=== PATIENT | male | born 1960 | race Caucasian/White ===

== ENCOUNTER → 2016-11-12 | Outpatient (REF) | payer OTHER ==
[2016-11-14 00:17] LABS: Lyme Disease IgG/IgM Antibodie <0.91 ISR (0.00-0.90); Lyme Disease IgM Ab Quantitati <0.80 index (0.00-0.79)
== END ==
LOC: M LABDRWAD 12:19
PROVIDERS: ATTEND Physician Assistant Medical
DX: S20.369A Insect bite (nonvenomous) of unspecified front wall of thorax, initial encounter (principal); W57.XXXA Bitten or stung by nonvenomous insect and other nonvenomous arthropods, initial encounter; Y92.9 Unspecified place or not applicable

== ENCOUNTER → 2016-11-24 | Outpatient (REF) | payer OTHER | LOC: M LABDRWAD 12:21 | PROVIDERS: ATTEND Urology | DX: R59.0 Localized enlarged lymph nodes (principal); E29.1 Testicular hypofunction; Z87.442 Personal history of urinary calculi ==

== ENCOUNTER → 2017-12-22 | Outpatient (REF) | payer OTHER ==
[2017-12-22 13:36] LABS: PROSTATIC SPECIFIC AG MONITOR 0.97 NG/ML (< 4.0)
[2017-12-22 15:08] LABS: TESTOSTERONE 230 NG/DL (241-827)
== END ==
LOC: M LABDRWAD 12:44
DX: R59.0 Localized enlarged lymph nodes (principal); N40.1 Benign prostatic hyperplasia with lower urinary tract symptoms; E29.1 Testicular hypofunction; Z87.442 Personal history of urinary calculi

== ENCOUNTER → 2020-01-21 | Outpatient (REF) | payer OTHER ==
[2020-01-21 13:06] LABS: HEMATOCRIT 48.6 % (42.0-52.0); HEMOGLOBIN 16.7 g/dl (13.5-17.5); MEAN CORPUSCULAR HEMOGLOBIN 32.1 pg (27.0-33.0); MEAN CORPUSCULAR HGB CONC 34.4 g/dl (32.0-36.5); MEAN CORPUSCULAR VOLUME 93.5 fl (80.0-96.0); PLATELET COUNT, AUTOMATED 232 10^3/uL (150-450); WHITE BLOOD COUNT 11.7 10^3/uL (4.0-10.0)
[2020-01-21 13:19] LABS: THYROID STIMULATING HORMONE 0.957 uIU/ML (0.358-3.740)
[2020-01-21 13:21] LABS: THYROID PEROXIDASE ANTIBODY 36.7 U/ML (<60.0)
[2020-01-21 14:00] LABS: BASOPHILS 1 % (0-1); LYMPHOCYTES 28 % (16-44); METAMYELOCYTES 1 % (0-0); MONOCYTES 6 % (0-5); NEUTROPHILS 64 % (28-66)
[2020-01-21 15:08] LABS: PLATELET ESTIMATE NORMAL (NORMAL)
== END ==
LOC: M LABDRWAD 12:26
PROVIDERS: ATTEND Dermatology
DX: R21 Rash and other nonspecific skin eruption (principal)

== ENCOUNTER → 2020-02-11 | Outpatient (CLI) | payer OTHER | LOC: M LABSMTC 10:15 | PROVIDERS: ATTEND Family Medicine | DX: Z11.59 Encounter for screening for other viral diseases (principal); Z20.828 Contact with and (suspected) exposure to other viral communicable diseases ==

== ENCOUNTER 2020-02-14 14:53 | Inpatient (IN) | payer OTHER ==
[~2020-02-14] VITALS: Ht 170.2 cm; Wt 112.5 kg
[2020-02-14] MEDS ORDERED: ALLO100T PO (15:06)
[2020-02-14] MEDS ORDERED: PANT40TA3 PO (15:06)
[2020-02-14] MEDS ORDERED: OLME1TAB47 PO (15:06)
[2020-02-14] MEDS ORDERED: ALL10TAB29 PO (15:06)
[2020-02-14] MEDS ORDERED: PARO20TA3 PO (15:06)
[2020-02-14] MEDS ORDERED: CELE1CAP9 PO (15:06)
--- NOTE | 2020-02-14 15:56 | REP ---
CHEST, SINGLE VIEW: Single view of the chest is performed and compared to a prior study of 12/11/2010. There is mild linear fibroatelectatic change in each lung base. There is no acute infiltrate. The heart is upper limits of normal in size. Mediastinal silhouette is unchanged. IMPRESSION: No acute infiltrate. Electronically Signed by Chris Robles MD 02/14/2020 04:29 P
[2020-02-14 15:59] LABS: HEMATOCRIT 27.6 % (42.0-52.0); HEMOGLOBIN 9.2 g/dl (13.5-17.5); MEAN CORPUSCULAR HEMOGLOBIN 35.7 pg (27.0-33.0); MEAN CORPUSCULAR HGB CONC 33.3 g/dl (32.0-36.5); PLATELET COUNT, AUTOMATED 135 10^3/uL (150-450); RED BLOOD COUNT 2.58 10^6/uL (4.30-6.10); WHITE BLOOD COUNT 6.1 10^3/uL (4.0-10.0)
[2020-02-14] MEDS ORDERED: NS 500 ML IV ONE (16:15)
[2020-02-14 16:35] LABS: ATYPICAL LYMPH 5 % (0-5); BASOPHILS 1 % (0-1); LYMPHOCYTES 23 % (16-44); MONOCYTES 5 % (0-5); NEUTROPHILS 66 % (28-66); PLATELET ESTIMATE DECREASED (NORMAL)
[2020-02-14 16:36] LABS: ANISOCYTOSIS 1+; POIKILOCYTOSIS 1+
[2020-02-14 16:45] LABS: ALT/SGPT 147 U/L (12-78); BILIRUBIN,DIRECT 1.9 MG/DL (0.0-0.2); BILIRUBIN,TOTAL 5.8 MG/DL (0.2-1.0); CK-MB VALUE MASS < 1.0 NG/ML (<3.6); CPK CREATINE PHOSPHOKINASE 89 U/L (39-308); MB/CK RELATIVE INDEX 1.12 (< OR =4); TOTAL PROTEIN 5.7 GM/DL (6.4-8.2); TROPONIN I < 0.02 NG/ML (< 0.10)
[2020-02-14] MEDS ORDERED: NS 1,000 ML IV SCH (16:45)
--- NOTE | 2020-02-14 17:58 | REPVR ---
PROCEDURE INFORMATION: Exam: CT Abdomen And Pelvis Without Contrast Exam date and time: 02/14/2020 5:05 PM Age: 59 years old Clinical indication: Other: Hyperbilirubinemia; Additional info: Evaristo, hyperbilirubinemia TECHNIQUE: Imaging protocol: Computed tomography of the abdomen and pelvis without contrast. Radiation optimization: All CT scans at this facility use at least one of these dose optimization techniques: automated exposure control; mA and/or kV adjustment per patient size (includes targeted exams where dose is matched to clinical indication); or iterative reconstruction. COMPARISON: No relevant prior studies available. FINDINGS: Lungs: Right basilar calcified granuloma. There are mild bibasilar dependent changes. Liver: Mild hepatic steatosis. Gallbladder and bile ducts: Previous cholecystectomy. Pancreas: Normal. No ductal dilation. Spleen: There are several calcified granulomas involving the spleen. Adrenals: Normal. No mass. Kidneys and ureters: There is left greater than right nephrolithiasis measuring up to 4 mm on the left. No hydronephrosis. Stomach and bowel: Mild diverticulosis without diverticulitis. Appendix: No evidence of appendicitis. Intraperitoneal space: Unremarkable. No free air. No significant fluid collection. Vasculature: Mild vascular calcification. Lymph nodes: Right hilar calcified lymph nodes. Bladder: Urinary bladder is under distended. Reproductive: Unremarkable as visualized. Bones/joints: There are degenerative changes involving the spine. Soft tissues: Small right inguinal hernia contains fat. IMPRESSION: 1. No acute abnormality. 2. Left greater than right nephrolithiasis without obstructive uropathy. 3. Additional findings as above. Electronically signed by: Floyd Jimenez On 02/14/2020 17:58:11 PM
--- NOTE | 2020-02-14 18:07 | REPVR ---
PROCEDURE INFORMATION: Exam: CT Head Without Contrast Exam date and time: 02/14/2020 5:51 PM Age: 59 years old Clinical indication: Syncope and collapse; Additional info: Near syncope TECHNIQUE: Imaging protocol: Computed tomography of the head without contrast. Radiation optimization: All CT scans at this facility use at least one of these dose optimization techniques: automated exposure control; mA and/or kV adjustment per patient size (includes targeted exams where dose is matched to clinical indication); or iterative reconstruction. COMPARISON: No relevant prior studies available. FINDINGS: Brain: Normal. No hemorrhage. Unremarkable white matter. No mass effect. Ventricles: Normal. No ventriculomegaly. Bones/joints: Unremarkable. No acute fracture. Sinuses: Visualized sinuses are unremarkable. No fluid levels. Mastoid air cells: Visualized mastoid air cells are well aerated. Soft tissues: Unremarkable. IMPRESSION: No acute intracranial abnormality. Electronically signed by: Floyd Jimenez On 02/14/2020 18:07:04 PM
[2020-02-14] MEDS: NS 1,000 ML IV SCH (18:58)
--- NOTE | 2020-02-14 19:38 | HPEPDOC ---
[facility] Medical History & Physical Date of Admission Feb 14, 2020 Date of Service: Feb 14, 2020 Primary Care Physician: A Attending Physician: Margarette Soni MD History and Physical CHIEF COMPLAINT: Loss of consciousness HISTORY OF PRESENT ILLNESS: Patient is a 59-year-old male with past nuchal history of obesity, gout, anxiety, GERD, osteoarthritis of the lower back, history of kidney stones and back rash who presented to [facility] from his primary care office today after having episode of syncope. The patient states that over the past 3 weeks he has been taking to prescribe medication dapsone for a "hivelike" rash that has a present on his back for the past several months. He had tried prednisone prior to that which he felt helped with the rash. He stopped the dapsone one week ago because he had been feeling increasingly lethargic, dizzy, lightheaded, decreased appetite, increased shortness of breath with a nonproductive cough, nausea with some vomiting 1. He also noticed that his urine was very dark in color and his skin was turning more yellow. He did not notice an improvement in the rash. He denies chest pain. He went to see his primary care doctor today and while he was there he experienced some lightheadedness and dizziness, loss consciousness and fell to the ground all knee for several seconds. When he came to again he was confused. EMS was called and blood pressure was checked. Systolic blood pressure was 84 mmHg. the patient denies any new medications outside of dapsone, changes in his diet. Of note, for his cough and new shortness of breath he was tested for Covid 19 by the outpatient clinic this past week and results came back negative. In the emergency room the patient's blood pressure 90/55, all other vital signs were within normal limits. Chest x-ray showed no acute disease. He had multiple abnormal labs including sodium 132, chloride 97, H&H 9.2 27.6, creatinine 3.2 (no known kidney disease), T bili 5.8, D bili 1.9, AST 135, ALT 147, alkaline phosphatase 126. The patient appeared jaundiced with yellowed skin and yellow sclera. On examination the patient had oral thrush on his tongue, noting that the patient had just completed several weeks of prednisone prior to starting the dapsone. He had a very light pink flattened and scaled rash all throughout his back, very faint. The patient received 500 mL bolus and was started on 120 mL of fluid of normal saline blood pressure improved over time. Last blood pressure recorded 132/90 in the ER. The patient denies shortness of breath currently. Nephrology and GI were contacted, case was discussed with both. They will both the consults on this case. Patient was admitted for acute drug induced hepatotoxicity, acute kidney failure likely multifactorial 2/2 to dapsone and dehydration. REVIEW OF SYSTEMS: CONSTITUTIONAL: Denies unexplained weight gain or weight loss, fever, night sweats EYES: Denies eye drainage, eye pain, visual changes, dry/irritated eye EARS, NOSE, MOUTH, THROAT: Denies difficulty hearing, ringing in ears, mouth sores, loose teeth, sore throat, facial numbness or pain NECK: Denies swollen glands CARDIOVASCULAR: Denies irregular heartbeat, racing heart, chest pains, swelling of feet or legs, pain in legs with walking RESPIRATORY: Denies night sweats, wheezing, sputum production, oxygen at home, coughing up blood, cough lasting > 1 month GASTROINTESTINAL: Denies abdominal pain, constipation, bloody stool, heartburn GENITOURINARY: Denies painful urination, bloody urine, frequent urination, urgency, leaking urine, impotence MUSCULOSKELETAL: Denies joint pain, muscle pain, leg swelling INTEGUMENTARY: Denies itching, change in existing skin lesion, hair loss or increase, breast changes. NEUROLOGICAL: Denies headaches, difficulty walking, numbness or tingling PSYCHIATRIC: Denies depression, anxiety, recurrent bad thoughts, mood swings, hallucinations PAST MEDICAL HISTORY: 1. Obesity 2. Back rash 3. Gout 4. Anxiety 5. GERD 6. Chronic low back pain 7. Osteoarthritis of the back 8. History of kidney stones PAST SURGICAL HISTORY: 1. Cholecystectomy 2. Right knee surgery 2 FAMILY HISTORY: Father: CAD, diabetes. at 59 years old Mother: Hypertension, alive. Siblings: Brotherdiabetes mellitus. Alive SOCIAL HISTORY: The patient denies smoking or drug use history. He drinks alcohol socially. 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 His primary care provider is Alonzo Mcclelland. He follows with a sub prior in [place], Dr. Rondon. He has no living will or healthcare proxy. He is a full code. ALLERGIES: Please see below. HOME MEDICATIONS: Please see below. PHYSICAL EXAMINATION: CONSTITUTIONAL: No acute distress, resting comfortably, AAO x 3 EYES: PERRLA, EOM intact, yellow sclera HENT, MOUTH: Normocephalic, atraumatic, moist mucous membranes, thrush on tongue NECK: SUPPLE, no JVD, no lymphadenopathy, no carotid bruit CV: Regular rate and rhythm, S1S2 normal, no murmurs/rubs/gallops RESPIRATORY: Clear to auscultation bilaterally, no rales/rhonchi/wheezes GI: obese, BS positive in 4 quadrants, soft, nontender, nondistended, no rebound or guarding, no organomegaly : Deferred MUSCULOSKELETAL: Normal ROM. No cyanosis, clubbing, swelling, joint deformity, extremity edema INTEGUMENTARY: Light pink and scaled rash all over the upper and lower back. Yellow skin throughout body, Intact, no lesions, no erythema NEUROLOGIC: Cranial Nerves II-XII are intact, no focal deficits PSYCHIATRIC: Mood and affect are normal LABORATORY DATA: Please see below IMAGING: CXR: No acute infiltrate. CT abd/pelvis: Mild hepatic steatosis No acute abnormality. Left greater than right nephrolithiasis without obstructive uropathy. CT head: No acute intracranial abnormality ASSESSMENT: 59 y/o male admitted for acute drug-induced hepatotoxicity, hepatitis, hyperbilirubinemia, acute renal failure, dehydration. PLAN: 1. Acute hepatotoxicity, drug induced 2/2 to dapsone. + hyperbilirubinemia, hepatitis, jaundice, increased T bili, steatosis on CT scan, no known hepatitis history. Continue with IV fluids, daily CMP. Follow-up hepatitis panel, PT/INR, PTT. Avoid hepatotoxic medications. GI consulted. 2. Acute kidney injury likely multifactorial from medications and dehydration. Creatinine 3.2, dark urine. Continue with IV fluids, daily CMP. Avoid nephrotoxic medications follow-up nephrology consult. 3. Syncope likely secondary to hypotension, dehydration. Improved blood pressure after 500 mL bolus and normal saline at 120 mL an hour. Continue with IV fluids, monitor blood pressure every 4 hours, telemetry. Holding off on echocardiogram and carotid doppler. 4. Dehydration likely multifactorial to problem #1 and 2. Continue with plan as above, monitor electrolytes closely. Daily CMP. 5. Skin rash on upper and lower back. Previously was on prednisone, most rec ently dapsone until one week ago. Unknown as to what sub prior was treating exactly. ? autoimmune etiology. 6. Oral thrush. Patient recently had [id number] prednisone treatments for the rash on his back. He states he has no pain in his mouth and this is all The past several weeks. Nystatin swish and swallow 3 times a day. 7. Shortness of breath and cough. Chest x-ray negative, currently on room air saturating well. Had a recent Covid 19 screen which was negative over the past week. Continue to monitor close. 8. Gout. Holding allopurinol. 9. Osteoarthritis. Stable. 10. Anxiety. Stable. 11. DVT px. Holding off on heparin while PT/INR/PTT pending. DISPOSITION: Admitted under inpatient status. Plan is discharge home when medically improved. GI and nephrology consulted. Vital Signs Vital Signs Date Time Temp Pulse Resp B/P (MAP) Pulse Ox O2 Delivery O2 Flow Rate FiO2 02/14/20 18:38 69 17 94 02/14/20 18:31 111/53 (72) 02/14/20 15:05 98.1 Room Air 2.0 Laboratory Data Labs 24H Laboratory Tests 2 02/14/20 15:42: Neutrophils (%) (Auto) , Nucleated Red Blood Cells % (auto) 0.0, Neutrophils 66, Lymphocytes (Manual) 23, Monocytes (Manual) 5, Basophils (Manual) 1, Atypical Lymphocytes 5, Poikilocytosis 1+, Anisocytosis 1+, Macrocytosis 2+, Platelet Estimate DECREASED, Lactic Acid Level 1.8, Total Bilirubin 5.8H, Direct Bilirubin 1.9H, Aspartate Amino Transf (AST/SGOT) 135H, Alanine Aminotransferase (ALT/SGPT) 147H, Alkaline Phosphatase 126H, Total Creatine Kinase 89, Creatine Kinase MB < 1.0, Creatine Kinase MB Relative Index 1.12, Troponin I < 0.02, Total Protein 5.7L, Albumin 3.0L, Albumin/Globulin Ratio 1.11, Thyroid Stimulating Hormone (TSH) 2.200 02/14/20 15:44: Bedside Glucose (Misc Panel) 103 02/14/20 15:46: POC Glucose (Misc Panel) 103, POC Sodium (Misc Panel) 132L, POC Potassium (Misc Panel) 3.8, POC Chloride (Misc Panel) 97L, POC Total CO2 (Misc Panel) 23.0, POC Blood Urea Nitrogen (Misc Panel 30H, POC Ionized Calcium (Misc Panel) 4.6, POC Creatinine (Misc Panel) 3.2H, POC Hematocrit (Misc Panel) 28.0L CBC/BMP Laboratory Tests 02/14/20 15:42 Microbiology Microbiology 02/14/20 Blood Culture, Received Pending 02/14/20 Blood Culture, Received Pending Home Medications Scheduled Allopurinol (Allopurinol) 100 Mg Tablet, 100 MG PO DAILY Celecoxib (Celecoxib) 200 Mg Capsule, 200 MG PO DAILY Cetirizine HCl (Cetirizine HCl) 10 Mg Tablet, 10 MG PO DAILYPRN Olmesartan/Hydrochlorothiazide (Olmesartan-Hctz 40-25 mg Tab) 1 Each Tablet, 1 TAB PO DAILY Pantoprazole Sodium (Pantoprazole Sodium) 40 Mg Tablet.dr, 40 MG PO DAILY Paroxetine HCl (Paroxetine HCl) 20 Mg Tablet, 20 MG PO DAILY Allergies Coded Allergies: No Known Allergies (Verified Allergy, Unknown, 02/14/20) A-FIB/CHADSVASC A-FIB History Current/History of A-Fib/PAF?: No Current PO Anticoag Therapy: No Age/Risk Factor Scoring CHADSVASC: CHADSVASC Response (Comments) Value Age Risk Factor Age < 65 years old 0 Gender Risk Factor Male 0 Hx of CHF No 0 Hx of HTN No 0 Hx of Stroke/TIA/or VTE No 0 Hx of Diabetes No 0 Hx of Vascular Disease No 0 Total 0 Treatment Treatment ordered: NONE Reason Anticoagulant not given: Other Other reason anticoagulant not: pending labs Margarette Soni MD Feb 14, 2020 19:38
[2020-02-14 19:49] LABS: INR 1.29; PROTHROMBIN TIME 15.8 SECONDS (11.8-14.0)
[2020-02-14 19:50] LABS: PARTIAL THROMBOPLASTIN TIME 38.2 SECONDS (25.0-38.4)
[2020-02-14 21:26] LABS: LDH LACTATE DEHYDROGENASE 1062 U/L (87-241)
[2020-02-14 23:05] VITALS: BP 126/59
[2020-02-15] MEDS: NYSTATIN 500,000 U/5 ML SUSP UDC SS SCH ×4 (00:23→21:28)
[2020-02-15] MEDS: NS 1,000 ML IV SCH ×2 (01:15→09:27)
[2020-02-15 05:47] LABS: HEMATOCRIT 24.9 % (42.0-52.0); HEMOGLOBIN 8.2 g/dl (13.5-17.5); MEAN CORPUSCULAR HEMOGLOBIN 35.7 pg (27.0-33.0); MEAN CORPUSCULAR HGB CONC 32.9 g/dl (32.0-36.5); MEAN CORPUSCULAR VOLUME 108.3 fl (80.0-96.0); PLATELET COUNT, AUTOMATED 137 10^3/uL (150-450)
[2020-02-15 06:00] VITALS: BP 118/70
[2020-02-15 06:18] LABS: ATYPICAL LYMPH 2 % (0-5); BASOPHILS 1 % (0-1); LYMPHOCYTES 31 % (16-44); MONOCYTES 10 % (0-5); NEUTROPHILS 56 % (28-66); PLATELET ESTIMATE NORMAL (NORMAL)
[2020-02-15 06:24] LABS: ALBUMIN 2.7 GM/DL (3.2-5.2); BILIRUBIN,TOTAL 4.2 MG/DL (0.2-1.0); CALCIUM LEVEL 8.1 MG/DL (8.8-10.2); CREATININE FOR GFR 1.56 MG/DL (0.70-1.30); GLOMERULAR FILTRATION RATE 48.6 (>49); POTASSIUM SERUM 3.9 MEQ/L (3.5-5.1); TOTAL PROTEIN 5.1 GM/DL (6.4-8.2)
[2020-02-15] MEDS: PANTOPRAZOLE 40MG TAB (PROTONIX) PO SCH (09:29)
[2020-02-15 11:28] LABS: HEPATITIS A ANTIBODY IGM NEGATIVE (NEGATIVE); HEPATITIS B CORE ANTIBODY IGM NEGATIVE (NEGATIVE); HEPATITIS B SURFACE ANTIGEN NEGATIVE (NEGATIVE); HEPATITIS C VIRUS ABY INDEX 0.1 INDEX (<0.8)
--- NOTE | 2020-02-15 13:58 | ECGEPIP ---
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
[2020-02-15 14:00] VITALS: BP 118/65
[2020-02-15 15:11] LABS: APPEARANCE, URINE HAZY (CLEAR); BACTERIA, URINE AUTO NEGATIVE (NEGATIVE); BILIRUBIN, URINE AUTO NEGATIVE (NEGATIVE); BLOOD, URINE BLOOD 1+ (NEGATIVE); COLOR, URINE AMBER (YELLOW); GLUCOSE, URINE (UA) AUTO 1+ mg/dL (NEGATIVE); KETONE, URINE AUTO NEGATIVE (NEGATIVE); LEUKOCYTE ESTERASE, URINE AUTO NEGATIVE (NEGATIVE); MUCUS, URINE SMALL (NEGATIVE); NITRITE, URINE AUTO NEGATIVE (NEGATIVE); PROTEIN, URINE AUTO NEGATIVE (NEGATIVE); RBC, URINE AUTO 2 /HPF (0-3); SPECIFIC GRAVITY URINE AUTO 1.014 (1.002-1.035); SQUAMOUS EPITHELIAL CELL UR AU 0 /HPF (0-6); WBC, URINE AUTO 3 /HPF (0-3)
--- NOTE | 2020-02-15 17:31 | IPNPDOC ---
Date Seen The patient was seen on 02/15/20. Progress Note SUBJECTIVE: Improving labs and jaundice. LDH high, with haptoglobin, ANCA, peripheral smear pending. GI and nephrology following. Denies chest pain, n/v/d, bleeding, shortness of breath. OBJECTIVE: VITAL SIGNS: Please see below PHYSICAL EXAMINATION: CONSTITUTIONAL: No acute distress, resting comfortably, AAO x 3 EYES: PERRLA, EOM intact, yellow sclera HENT, MOUTH: Normocephalic, atraumatic, moist mucous membranes, thrush on tongue NECK: SUPPLE, no JVD, no lymphadenopathy, no carotid bruit CV: Regular rate and rhythm, S1S2 normal, no murmurs/rubs/gallops RESPIRATORY: Clear to auscultation bilaterally, no rales/rhonchi/wheezes GI: obese, BS positive in 4 quadrants, soft, nontender, nondistended, no rebound or guarding, no organomegaly : Deferred MUSCULOSKELETAL: Normal ROM. No cyanosis, clubbing, swelling, joint deformity, extremity edema INTEGUMENTARY: Light pink and scaled rash all over the upper and lower back- slightly improved today. Yellow skin throughout body. Intact, no lesions, no erythema NEUROLOGIC: Cranial Nerves II-XII are intact, no focal deficits PSYCHIATRIC: Mood and affect are normal LABORATORY DATA: Please see below IMAGING: No new imaging. CURRENT MEDICATIONS: Please see below. ASSESSMENT: 59 y/o male admitted for acute drug-induced hepatotoxicity, hepatitis, hyperbilirubinemia, acute renal failure, dehydration r/o hemolytic syndrome. PLAN: 1. Acute hepatotoxicity, drug induced 2/2 to dapsone. Hyperbilirubinemia, tranaminitis, jaundice, T bili improving. Steatosis on CT scan, no known hepatitis history. Continue with IV fluids, daily CMP. Follow-up hepatitis panel, daily labs. Avoid hepatotoxic medications. GI consulted. 2. Acute kidney injury likely multifactorial from medications and dehydration. Creatinine 1.56, improved from 3.2 on admission. Continue with IV fluids, daily CMP. Avoid nephrotoxic medications. Nephrology consulted. 3. Anemia. r/o hemolytic syndrome. Slightly worsened H/H overnight with fluids, no bleeding, T bili decreased. LDH high. F/u folate, vitamin B12, iron, TIBC, ferritin, peripheral smear, haptoglobin, G6PD deficiency (with recent dapsone). 4. Syncope likely secondary to hypotension, dehydration. No events overnight. Improved blood pressure . 5. Dehydration likely multifactorial to problem #1 and 2. Improving slowly, Na 135. Continue with plan as above, monitor electrolytes closely. Daily CMP. 6. Skin rash on upper and lower back. Previously was on prednisone, most recent ly dapsone until one week ago. Unknown as to what rod hanger was treating exactly. ? autoimmune etiology. ANCA pending. 7. Oral thrush. C/w Nystatin swish and swallow TID 8. Shortness of breath and cough. Chest x-ray negative, currently on room air saturating well. Had a recent Covid 19 screen which was negative over the past week. Continue to monitor 9. Gout. Holding allopurinol. 10. Osteoarthritis. Stable. 11. Anxiety. Stable. 12. DVT px. Holding off on heparin with ? hemolysis. Encourage ambulation, SCD. DISPOSITION: Admitted under inpatient status. Plan is discharge home when m edically improved. GI and nephrology consulted. VS, I&O, 24H, [facility] Vital Signs/I&O Vital Signs Date Time Temp Pulse Resp B/P (MAP) Pulse Ox O2 Delivery O2 Flow Rate FiO2 02/15/20 14:00 98.5 91 18 118/65 (82) 90 Room Air 02/15/20 06:00 1.0 I&O- Last 24 Hours up to 6 AM 02/15/20 06:00 Intake Total 2125 ml Output Total 600 ml Balance 1525 ml Laboratory Data 24H LABS Laboratory Tests 2 02/14/20 19:32: Prothrombin Time 15.8H, Prothromb Time International Ratio 1.29, Activated Partial Thromboplast Time 38.2, Hepatitis A IgM Antibody NEGATIVE, Hepatitis B Surface Antigen NEGATIVE, Hepatitis B Core IgM Antibody NEGATIVE, Hepatitis C Antibody Index 0.1 02/15/20 05:26: Neutrophils (%) (Auto) , Nucleated Red Blood Cells % (auto) 0.0, Neutrophils 56, Lymphocytes (Manual) 31, Monocytes (Manual) 10H, Basophils (Manual) 1, Atypical Lymphocytes 2, Red Blood Cell Morphology NORMAL, Platelet Estimate NORMAL, Anion Gap 8, Glomerular Filtration Rate 48.6L, Calcium Level 8.1L, Total Bilirubin 4.2H, Aspartate Amino Transf (AST/SGOT) 101H, Alanine Aminotransferase (ALT/SGPT) 127H, Alkaline Phosphatase 111, Total Protein 5.1L, Albumin 2.7L, Albumin/Globulin Ratio 1.13 02/15/20 14:59: Urine Color JUAN, Urine Appearance HAZY, Urine pH 5.0, Urine Specific [place] 1.014, Urine Protein NEGATIVE, Urine Glucose (Auto)(UA) 1+H, Urine Ketones (Auto) NEGATIVE, Urine Blood 1+H, Urine Nitrite NEGATIVE, Urine Bilirubin NEGATIVE, Urine Urobilinogen 4.0H, Urine Leukocyte Esterase (Auto) NEGATIVE, Ur ine WBC (Auto) 3, Urine RBC (Auto) 2, Urine Hyaline Casts (Auto) 0, Urine Bacteria (Auto) NEGATIVE, Urine Squamous Epithelial Cells 0, Urine Mucus (Auto) SMALL, Urine Sperm (Auto) , Urine Random Creatinine 151.0, Urine Random Sodium 46, Urine Random Urea Nitrogen 882 02/15/20 16:20: CBC/BMP Laboratory Tests 02/15/20 05:26 Microbiology Microbiology 02/14/20 Blood Culture - Preliminary, Resulted No growth after 24 hours . All specim... 02/14/20 Blood Culture - Preliminary, Resulted No growth after 24 hours . All specim... Current Medications Current Medications Medications (Trade) Dose Ordered Sig/Serg Route PRN Reason Start Time Stop Time Status Last Admin Dose Admin Home Med (Med Rec Complete!) ASDIRECTED XX 02/14/20 17:15 02/14/20 17:08 DC Nystatin (Mycostatin) 5 ml TID SS 02/14/20 21:00 02/15/20 17:19 Pantoprazole Sodium (Protonix) 40 mg DAILY PO 02/15/20 09:00 02/15/20 09:29 Sodium Chloride 1,000 ml @ 120 mls/hr Q8H20M IV 02/14/20 16:45 02/14/20 18:45 DC 02/14/20 17:16 Sodium Chloride 1,000 ml @ 125 mls/hr Q8H IV 02/14/20 18:45 02/15/20 15:56 DC 02/15/20 09:27 Allergies Coded Allergies: No Known Allergies (Verified Allergy, Unknown, 02/14/20) Margarette Soni MD Feb 15, 2020 17:31
--- NOTE | 2020-02-15 18:44 | CR ---
DATE OF CONSULTATION: 02/15/2020 REQUESTING PHYSICIAN: Dr. Margarette Soni CONSULTING PHYSICIAN: Dr. Hannah REASON FOR CONSULTATION: Management of acute renal failure. CHIEF COMPLAINT: The patient had syncope outpatient in the radiology department. HISTORY OF THE PRESENT ILLNESS: Mr. Gopal Olmedo is a 59-year-old male with a past medical history of obesity, gout, osteoarthritis, history of kidney stones. He was following up with apparently dermatology or allergy office in [place], and he had a hive-like rash. For that he was prescribed dapsone. He had been taking dapsone for about 27 days. The patient was feeling weakness, lightheadedness, lack of appetite, and he was sent for an x-ray at [facility] and at the x-ray department, he had a syncope. He was sent to the emergency room for further evaluation. The patient had borderline low blood pressures when he arrived. He was also anemic with a hemoglobin of 9.2 and had acute renal failure with a creatinine of 3.2. He had elevated total bilirubin. The patient was discussed by myself with the emergency room (ER) physician, and decision was made to stop his dapsone and all of his antihypertensives from home. He was started on IV fluid hydration. He was admitted under the hospitalist service, and I saw and evaluated the patient today morning at the bedside. The patient was getting ready to eat h is food, and he reports that he is feeling much better today as compared with yesterday. PAST MEDICAL HISTORY: History of obesity, history of hives and skin rash, gout, anxiety, gastroesophageal reflux disease, chronic low back pain, and history of kidney stones in the past but no known history of kidney disease or renal failure. PAST SURGICAL HISTORY: Status post cholecystectomy, status post right knee surgery times two. ALLERGIES: No known drug allergies. FAMILY HISTORY: No significant family history of end-stage renal disease requiring hemodialysis. SOCIAL HISTORY: The patient lives at home. He denies any illicit drug abuse. He is not a smoker. HOME MEDICATIONS: He takes allopurinol 100 mg daily, celecoxib 200 mg by mouth daily, cetirizine 10 mg by mouth daily as needed, olmesartan/hydrochlorothiazide 40/25 one tablet daily, Protonix 40 mg by mouth daily, paroxetine 20 mg by mouth daily. REVIEW OF SYSTEMS: Constitutional: He reports that he was feeling very weak and tired. Otherwise he denies any fevers or chills. Eyes: He denies any blurry vision, double vision. ENT: He denies any dysphagia, odynophagia. Cardiovascular: He denies any chest pain or palpitations. Respiratory: He denies any shortness of breath or cough. Gastrointestinal (GI): He reports his appetite was really low, but his appetite is getting better now ever since he was admitted to the hospital and medications were changed. Genitourinary: He reports dark discoloration of the urine. Musculoskeletal: He reports muscle aches and pains on arrival. Skin: He reports skin hives. 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 Hematology/Oncology: He denies any easy bleeding or bruising at this time. All other review of systems is negative. PHYSICAL EXAMINATION: General: The patient is awake, alert, oriented times three, laying in bed. Vital signs: Temperature is 98.5 degrees Fahrenheit, blood pressure 118/70, pulse is 80, respiratory rate of 20, saturating 95% on nasal cannula. Head and neck exam: Extraocular muscles intact. Pupils equally round and reactive to light. Mucous membranes are moist. Neck is supple. There is no jugular venous distention (JVD). Cardiovascular: S1, S2, regular rate. No edema of the bilateral lower extremities. Respiratory: Chest is clear to auscultation bilaterally. Bilateral equal air entry. No rales or rhonchi. Abdomen: Soft, obese, positive bowel sounds. Nontender. No organomegaly. Musculoskeletal: No clubbing or cyanosis. Pulses are 2+. ASSEMBLY LINE DRIVER: No focal deficit, power is 5/5 in all extremities. Skin: No rashes. Psych: Normal mood and affect. LAB REVIEW: CBC showed a WBC of 5, hemoglobin 8.2, platelets are 137. Peripheral smear was done which showed macrocytic anemia. Urinalysis done today showed 1+ glucose, 1+ blood, 4+ urine urobilinogen. There was no protein. BMP done today showed sodium 135, potassium 3.9, chloride 104, bicarbonate 23, BUN 30, creatinine is 1.5, lactic acid was of 1.8, calcium is 8.1, total bilirubin was 5.8 yesterday, 4.2 today, AST is 101, ALT is 127. LDH was 1062 yesterday. Albumin is 2.7. Immunology ANCA antibodies are pending. Serology: Hepatitis A, hepatitis B and hepatitis C is negative. IMAGING: A CT scan of the abdomen and pelvis was done, which did not show any acute pathology. There was left greater than right nephrolithiasis without obstruction. CURRENT INPATIENT MEDICATIONS: The patient's medications were all reviewed by me. He was given normal saline bolus, and he was getting normal saline at 125 mL an hour. He is getting nystatin. He is also on Protonix 40 mg by mouth daily. ASSESSMENT: 59-year-old male with a history of gout, obesity, who was taking dapsone for the last 1 month almost, admitted this time with hemolysis, acute hepatitis, and acute kidney injury. PLAN: 1. Acute renal failure. It is most likely secondary to hemolysis and hyperbilirubinemia, and dehydration, and use of angiotensin receptor blockers as outpatient along with thiazide diuretics. It is multifactorial etiology. Angiotensin receptor vincent and thiazides have already been stopped. The patient has been adequately hydrated. I am going to stop the IV fluid hydration since the offending agent has been stopped and hemolysis is improving. I am going to stop the IV fluid hydration now. Renal function is expected to improve over the next 48 hours. 2. Hemolysis. It is secondary to use of dapsone. The patient has elevated LDH level along with hyperbilirubinemia and mild anemia. Check another LDH level tomorrow. Dapsone has been stopped. 3. Acute hepatitis. It is most likely secondary to use of dapsone. The patient has elevated total bilirubin and bilirubinuria as well. Offending medication has been stopped. Hepatitis levels are negative. Dapsone tends to cause more hemolysis in patients who have G6PD deficiency. I have ordered a G6PD level as well. 4. History of hypertension. The patient came in with hypotension. All the antihypertensive medications are on hold. 5. Chronic gout secondary to chronic kidney disease. The patient's allopurinol has been stopped; it will be restarted once the patient's renal failure and hemolysis gets better. Thank you for involving me in the care of this patient. I shall be happy to follow the patient along with you tomorrow morning.
[2020-02-15 19:03] LABS: FOLATE 7.3 NG/ML (>5.4); PERCENT SATURATION 24.2 % (19.7-50.0)
[2020-02-15 22:00] VITALS: BP 121/66
[2020-02-16 06:00] VITALS: BP 106/66
[2020-02-16 06:29] LABS: HEMATOCRIT 22.9 % (42.0-52.0); HEMOGLOBIN 7.5 g/dl (13.5-17.5); MEAN CORPUSCULAR HEMOGLOBIN 35.5 pg (27.0-33.0); MEAN CORPUSCULAR HGB CONC 32.8 g/dl (32.0-36.5); MEAN CORPUSCULAR VOLUME 108.5 fl (80.0-96.0); PLATELET COUNT, AUTOMATED 139 10^3/uL (150-450); RED BLOOD COUNT 2.11 10^6/uL (4.30-6.10); WHITE BLOOD COUNT 5.3 10^3/uL (4.0-10.0)
[2020-02-16 06:55] LABS: ALBUMIN 2.6 GM/DL (3.2-5.2); ALT/SGPT 121 U/L (12-78); BILIRUBIN,TOTAL 2.9 MG/DL (0.2-1.0); BLOOD UREA NITROGEN 17 MG/DL (7-18); CARBON DIOXIDE LEVEL 24 MEQ/L (21-32); CHLORIDE LEVEL 106 MEQ/L (98-107); CREATININE FOR GFR 0.96 MG/DL (0.70-1.30); GLOMERULAR FILTRATION RATE > 60.0 (>49); GLUCOSE, FASTING 98 MG/DL (70-100); POTASSIUM SERUM 3.9 MEQ/L (3.5-5.1); SODIUM LEVEL 138 MEQ/L (136-145); TOTAL PROTEIN 5.1 GM/DL (6.4-8.2)
[2020-02-16 07:38] LABS: ANISOCYTOSIS 1+; ATYPICAL LYMPH 4 % (0-5); EOSINOPHILS 1 % (0-3); LYMPHOCYTES 31 % (16-44); MONOCYTES 10 % (0-5); NEUTROPHILS 54 % (28-66); PLATELET ESTIMATE NORMAL (NORMAL)
[2020-02-16 08:52] LABS: LDH LACTATE DEHYDROGENASE 804 U/L (87-241); NT-PRO BNP 682 PG/ML (<125)
[2020-02-16] MEDS: FOLIC ACID 1 MG TAB PO SCH (09:40)
[2020-02-16] MEDS: PANTOPRAZOLE 40MG TAB (PROTONIX) PO SCH (09:40)
[2020-02-16] MEDS: NYSTATIN 500,000 U/5 ML SUSP UDC SS SCH ×3 (09:41→20:50)
--- NOTE | 2020-02-16 13:43 | IPNPDOC ---
Date Seen The patient was seen on 02/16/20. Progress Note SUBJECTIVE: Labs continue to improve, Cr now normal. Suspicious for hemolysis but cause is still under investigation, labs pending. No signs of acute bleeding. GI and nephrology following. Denies chest pain, n/v/d, bleeding, shortness of breath. OBJECTIVE: VITAL SIGNS: Please see below PHYSICAL EXAMINATION: CONSTITUTIONAL: No acute distress, resting comfortably, AAO x 3 EYES: PERRLA, EOM intact, mildly yellow sclera HENT, MOUTH: Normocephalic, atraumatic, moist mucous membranes, thrush on tongue improving NECK: SUPPLE, no JVD, no lymphadenopathy, no carotid bruit CV: Regular rate and rhythm, S1S2 normal, no murmurs/rubs/gallops RESPIRATORY: Clear to auscultation bilaterally, no rales/rhonchi/wheezes GI: obese, BS positive in 4 quadrants, soft, nontender, nondistended, no matthew ound or guarding, no organomegaly : Deferred MUSCULOSKELETAL: Normal ROM. No cyanosis, clubbing, swelling, joint deformity, extremity edema INTEGUMENTARY: Light pink and scaled rash all over the upper and lower back- almost gone. yellow tint to skin-improving. Intact, no lesions, no erythema NEUROLOGIC: Cranial Nerves II-XII are intact, no focal deficits PSYCHIATRIC: Mood and affect are normal LABORATORY DATA: Please see below IMAGING: No new imaging. CURRENT MEDICATIONS: Please see below. ASSESSMENT: 59 y/o male admitted for acute drug-induced hepatotoxicity, hepatitis, acute renal failure, dehydration r/o hemolytic syndrome. PLAN: 1. Acute hepatotoxicity, drug induced 2/2 to dapsone. Hyperbilirubinemia, transaminitis, jaundice, T bili continues to improving. Steatosis on CT scan, no known hepatitis history. Hepatitis panel neg. Stopped IVFs today, daily CMP. F/u daily labs and avoid hepatotoxic medications. GI consulted. 2. Acute kidney injury likely multifactorial from medications and dehydration- resolved. Creatinine wnl, improved from 3.2 on admission. Encourage adequate PO intake. F/u daily CMP. Avoid nephrotoxic medications. Nephrology consulted. 3. Anemia. Could be multifactorial with likely chronic iron deficiency anemia and ruling out hemolytic syndrome. Slightly worsened H/H overnight with fluids, fluids stopped. Iron low. No bleeding, T bili decreased. LDH high. Peripheral smear, haptoglobin, G6PD deficiency (with recent dapsone) pending. Monitor for signs of bleeding. Starting ferrous sulfate BID, Vitamin C, folic acid supplementation. 4. Dehydration likely multifactorial to problem #1 and 2. Resolved 5. Skin rash on upper and lower back. Improved. Unknown as to what night coordinator was treating exactly. ? autoimmune etiology. ANCA pending. 6. Oral thrush. Improving. C/w Nystatin swish and swallow TID 7. Elevated BNP. likely 2/2 to fluid administration. No lower ext swelling or crackles on exam, no signs of fluid overload. No prior hx of CHF. Give lasix 40 mg x 1 dose today. Monitor fluid status. 8. Shortness of breath and cough. Chest x-ray negative on admission, currently on room air saturating well. Had a recent Covid 19 screen which was negative over the past week. Likely another viral etiology? Continue to monitor 9. REBEKA. 2 L NC overnight at home, noncompliant with CPAP machine. 10. Gout. Holding allopurinol. 11. Osteoarthritis. Stable. 12. Anxiety. Stable. 13. DVT px. Holding off on heparin with ? hemolysis. Encourage ambulation, SCD. DISPOSITION: Admitted under inpatient status. Plan is discharge home when medically improved. GI and nephrology consulted. VS, I&O, 24H, Fishbone Vital Signs/I&O Vital Signs Date Time Temp Pulse Resp B/P (MAP) Pulse Ox O2 Delivery O2 Flow Rate FiO2 02/16/20 06:00 99.8 78 20 106/66 (79) 94 Nasal Cannula 2.0 I&O- Last 24 Hours up to 6 AM 02/16/20 06:00 Intake Total 3405 ml Output Total 1655 ml Balance 1750 ml Laboratory Data 24H LABS Laboratory Tests 2 02/15/20 14:59: Urine Color JUAN, Urine Appearance HAZY, Urine pH 5.0, Urine Specific Hagerman 1.014, Urine Protein NEGATIVE, Urine Glucose (Auto)(UA) 1+H, Urine Ketones (Auto) NEGATIVE, Urine Blood 1+H, Urine Nitrite NEGATIVE, Urine Bilirubin NEGAT DAQUAN, Urine Urobilinogen 4.0H, Urine Leukocyte Esterase (Auto) NEGATIVE, Urine WBC (Auto) 3, Urine RBC (Auto) 2, Urine Hyaline Casts (Auto) 0, Urine Bacteria (Auto) NEGATIVE, Urine Squamous Epithelial Cells 0, Urine Mucus (Auto) SMALL, Urine Sperm (Auto) , Urine Random Creatinine 151.0, Urine Random Sodium 46, Urine Random Urea Nitrogen 882 02/15/20 16:20: 02/15/20 18:00: Iron Level 51L, Total Iron Binding Capacity 211L, Transferrin % Saturation 24.2, Ferritin 3662H, Vitamin B12 Level 417, Folate 7.3 02/16/20 05:38: Neutrophils (%) (Auto) , Nucleated Red Blood Cells % (auto) 0.0, Neutrophils 54, Lymphocytes (Manual) 31, Monocytes (Manual) 10H, Eosinophils (Manual) 1, Atypical Lymphocytes 4, Anisocytosis 1+, Macrocytosis 1+, Platelet Estimate NORMAL, Anion Gap 8, Glomerular Filtration Rate > 60.0, Calcium Level 8.0L, Total Bilirubin 2.9H, Aspartate Amino Transf (AST/SGOT) 82H, Alanine Aminotransferase (ALT/SGPT) 121H, Alkaline Phosphatase 123H, Lactate Dehydrogenase 804H, BO-Tfs-T-Type Natriuretic Peptide 682H, Total Protein 5.1L, Albumin 2.6L, Albumin/Globulin Ratio 1.04 CBC/BMP Laboratory Tests 02/16/20 05:38 Microbiology Microbiology 02/14/20 Blood Culture - Preliminary, Resulted No growth after 24 hours . All specim... 02/14/20 Blood Culture - Preliminary, Resulted No growth after 24 hours . All specim... Current Medications Current Medications Medications (Trade) Dose Ordered Sig/Serg Route PRN Reason Start Time Stop Time Status Last Admin Dose Admin Darbepoetin Mayo (Aranesp) 100 mcg Kellogg@09 SC 02/17/20 09:00 Folic Acid (Folic Acid) 4 mg DAILY PO 02/16/20 09:00 02/16/20 09:40 Home Med (Med Rec Complete!) ASDIRECTED XX 02/14/20 17:15 02/14/20 17:08 DC Nystatin (Mycostatin) 5 ml TID SS 02/14/20 21:00 02/16/20 09:41 Pantoprazole Sodium (Protonix) 40 mg DAILY PO 02/15/20 09:00 02/16/20 09:40 Sodium Chloride 1,000 ml @ 120 mls/hr Q8H20M IV 02/14/20 16:45 02/14/20 18:45 DC 02/14/20 17:16 Sodium Chloride 1,000 ml @ 125 mls/hr Q8H IV 02/14/20 18:45 02/15/20 15:56 DC 02/15/20 09:27 Thiamine HCl (Thiamine HCl) 100 mg DAILY PO 02/17/20 13:00 Allergies Coded Allergies: No Known Allergies (Verified Allergy, Unknown, 02/14/20) Margarette Soni MD Feb 16, 2020 13:43
[2020-02-16 14:00] VITALS: BP 114/64
[2020-02-16] MEDS ORDERED: FUROSEMIDE 40MG/4ML VIAL (J1940) IV ONE (15:00)
[2020-02-16] MEDS: FERROUS SULFATE 325MG TAB PO SCH ×2 (15:01→20:50)
[2020-02-16] MEDS: ASCORBIC ACID 500 MG TAB PO SCH (15:01)
--- NOTE | 2020-02-16 16:46 | IPN ---
DATE: 02/16/2020 Mr. Olmedo is seen this morning on his bedside. He is feeling better and reports that his appetite has improved and denies any nausea or vomiting. He has no dyspnea, chest pain, fever, or chills. He was admitted with acute kidney injury and acute hepatic injury, probably related to medications. He was taking dapsone for about 4 weeks, which has been stopped now. PHYSICAL EXAMINATION: Temperature 99.8 degrees Fahrenheit, heart rate 78 per minute, respiratory rate 20 per minute, blood pressure 106/66 mm of mercury, and oxygen saturation 94%. Head is atraumatic. Neck is supple and without jugular venous distention (JVD) or thyroid enlargement. There is no oral thrush or ulcers. Heart sounds are regular, and lungs sound clear to auscultation bilaterally. Abdomen soft and nontender and without a palpable organomegaly. Bowel sounds are normal. Extremities have no cyanosis or clubbing. Neurologically, he is awake, alert, and oriented times three. Today's labs show sodium 138, potassium 3.9, CO2 of 24, BUN 17, and creatinine 0.96. AST is down to 82, ALT 121, alkaline phosphatase 123, and LDH is down to 804. PROBLEMS: 1. Acute kidney injury, most likely nephrotoxicity caused by medications versus hemolysis-induced in kidney injury. Kidney function has improved significantly over last 24 hours. The patient reports that his urine is turning to normal yellow color now. He is being encouraged to continue with liberal fluid intake. 2. Hyponatremia. Sodium level has corrected, and all other electrolytes are within normal range. No intervention is indicated at this time. 3. Anemia. His anemia did get worse over the last 24 hours. Iron studies have been normal. In fact, his ferritin was quite high due to acute reactant. At this point, he is likely to require transfusion, but we will hold him off and see how his complete blood count (CBC) is tomorrow. Will have to use caution for transfusion due to risk of hemolysis. I will give him one dose of Aranesp 100 mcg tomorrow morning.
--- NOTE | 2020-02-16 17:30 | CR.PDOC ---
General Date of Consultation: Feb 15, 2020 Referring Provider: Margarette Soni MD Attending Physician: JOSE QUINTERO MD Consultation Primary physician/ hospitalist: - Dr. Soni Reason for consult: - Abnormal liver tests. HPI: 59 year old male patient with Obesity, Gout, Anxiety, GERD, Osteoarthritis, Kidney stones, vitiligo, Chronic rash on back, was admitted to [facility] for syncope and noted with acute renal failure and abnormal liver tests. Patient was on dapsone for around 4 weeks prior to this hospitalization. GI was consulted for the abnormal liver tests. Patient reports since being on dapsone he was feeling sick and weak, on day of hospitalizatio he had one episode of syncope. Patient denies any sick contracts or any other GI symptoms and since hospitalization and IV hydration he was feeling much better. Patient denies any overt external bleeding, no OTC herbal supplements or nutrition supplements. Pertinent negative GI symptoms: Patient denies fever, sick contacts, recent travel, nausea, vomiting, diarrhea, abdominal pain, loss of appetite, early satiety or unintentional weight loss. No history of hematemesis, melena or hematochezia. Patient reports regular bowel movements. Review of Systems: GI: as stated above CVS: No chest pain, No palpitations, No leg swelling. RS: No Shortness of breath, No Wheezing, no cough HAND II TUBE BENDER: No focal motor weakness, No sensory problems Hematology: No bruising, No gum bleeding, Musculoskeletal: No joint pain, ambulating well. Skin: has erythematous priritic rash on back ( which sometime extends whole back as per patient) : No hematuria, No burning sensation of the urine ENT: No ear discharge/ pain, No dysphagia. Eyes: No photophobia. Home medications: reviewed. Antithrombotic agents: - none Medical h/o: As above. Surgical h/o: None on abdomen. Social h/o: Alcohol: Denies , smoking: Denies, IVDA/ drugs: Denies. Family h/o of GI cancers - None Prior Endoscopies: None in [facility] Prior GI evaluations: - None in [facility] Exam: Vitals: reviewed General: Alert and oriented x 3, not in distress HEENT: NO pallor, no icterus. Normal oropharynx, NO cervical lymph nodes. Chest: symmetric with bilateral clear air entry, CVS: S1, S2 heard, normal, no murmurs . Abdomen: non-distended, no surgical scars, soft, non-tender, no palpable masses, normal bowel sounds heard. Rectal exam: Patient refused / Deferred at this time in view of scheduled colonoscopy. Extremities: no pedal edema, pulses palpable. HAND II TUBE BENDER: no focal motor or sensory deficits. Moves all extremities Skin: no rash. Labs: reviewed. Imaging: reviewed. CT abdomen with IV contrast- showed normal CBD and fatty liver. Impression: - Abnormal Liver panel, with anemia, NEVILLE in patient with recent use of Dapsone -- DDx-- Acute hemolytic syndrome vs idiosyncratic drug reaction vs immune mediated reason Recommendations: - Patient educated about the test results, possible differential diagnoses and All questions answered. - Hold Dapsone and all hepatotoxic medications. - Obtain LDH, Haptoglobin, DIrect and indirect coumbs tests, peripheral smear, Iron studies, Vitamin B12 , Folate, PTT/ INR> - Closely monitor liver panel, Hemoglobin , hematocrit and platelets, renal f unction. - If any worsening of hemoglobin levels consider Hematology evaluation with possible bone marrow biopsy. - Supportive care with Thiamine, folic acid and nutrition as tolerated. - GI will follow. - Please update GI if any acute change in status. Addendum: 02/17/2020: Patient labs were reviewed and as per patient request, patient is called and update about the plan of care. Patient upon discharge to follow in PCP clinic for repeat liver panel and to follow up in GI clinic in 3-4 weeks. Plan of care discussed with patient and primary team. Patient verbalized understanding and agreed with the plan. Vital Signs/I&O Vital Signs Date Time Temp Pulse Resp B/P (MAP) Pulse Ox O2 Delivery O2 Flow Rate FiO2 02/16/20 14:00 100.0 80 18 114/64 (81) 94 Room Air 02/16/20 06:00 2.0 I&O- Last 24 Hours up to 6 AM 02/16/20 05:59 Intake Total 3955 ml Output Total 2005 ml Balance 1950 ml Laboratory Data Labs 24H Laboratory Tests 2 02/15/20 18:00: Iron Level 51L, Total Iron Binding Capacity 211L, Transferrin % Saturation 24.2, Ferritin 3662H, Vitamin B12 Level 417, Folate 7.3 02/16/20 05:38: Neutrophils (%) (Auto) , Nucleated Red Blood Cells % (auto) 0.0, Neutrophils 54, Lymphocytes (Manual) 31, Monocytes (Manual) 10H, Eosinophils (Manual) 1, Atypical Lymphocytes 4, Anisocytosis 1+, Macrocytosis 1+, Platelet Estimate NORMAL, Anion Gap 8, Glomerular Filtration Rate > 60.0, Calcium Level 8.0L, Total Bilirubin 2.9H, Aspartate Amino Transf (AST/SGOT) 82H, Alanine Aminot ransferase (ALT/SGPT) 121H, Alkaline Phosphatase 123H, Lactate Dehydrogenase 804H, KD-Tye-O-Type Natriuretic Peptide 682H, Total Protein 5.1L, Albumin 2.6L, Albumin/Globulin Ratio 1.04 CBC/BMP Laboratory Tests 02/16/20 05:38 Microbiology Microbiology 02/14/20 Blood Culture - Preliminary, Resulted No Growth after 48 hours. All Specime... 02/14/20 Blood Culture - Preliminary, Resulted No Growth after 48 hours. All Specime... Allergies Coded Allergies: No Known Allergies (Verified Allergy, Unknown, 02/14/20) Home Medications Scheduled Allopurinol (Allopurinol) 100 Mg Tablet, 100 MG PO DAILY, (Reported) Celecoxib (Celecoxib) 200 Mg Capsule, 200 MG PO DAILY, (Reported) Cetirizine HCl (Cetirizine HCl) 10 Mg Tablet, 10 MG PO DAILYPRN, (Reported) Olmesartan/Hydrochlorothiazide (Olmesartan-Hctz 40-25 mg Tab) 1 Each Tablet, 1 TAB PO DAILY, (Reported) Pantoprazole Sodium (Pantoprazole Sodium) 40 Mg Tablet.dr, 40 MG PO DAILY, (Reported) Paroxetine HCl (Paroxetine HCl) 20 Mg Tablet, 20 MG PO DAILY, (Reported) JOSE QUINTERO MD Feb 16, 2020 17:30
[2020-02-16 22:00] VITALS: BP 112/64
[2020-02-17 06:00] VITALS: BP 112/70
[2020-02-17 06:05] LABS: HEMATOCRIT 22.7 % (42.0-52.0); HEMOGLOBIN 7.5 g/dl (13.5-17.5); MEAN CORPUSCULAR VOLUME 106.1 fl (80.0-96.0); PLATELET COUNT, AUTOMATED 141 10^3/uL (150-450); RED BLOOD COUNT 2.14 10^6/uL (4.30-6.10); WHITE BLOOD COUNT 5.4 10^3/uL (4.0-10.0)
[2020-02-17 06:25] LABS: ALBUMIN 2.6 GM/DL (3.2-5.2); ALT/SGPT 120 U/L (12-78); BILIRUBIN,TOTAL 2.3 MG/DL (0.2-1.0); BLOOD UREA NITROGEN 11 MG/DL (7-18); CALCIUM LEVEL 7.8 MG/DL (8.8-10.2); CARBON DIOXIDE LEVEL 29 MEQ/L (21-32); CHLORIDE LEVEL 103 MEQ/L (98-107); CREATININE FOR GFR 0.92 MG/DL (0.70-1.30); GLOMERULAR FILTRATION RATE > 60.0 (>49); GLUCOSE, FASTING 102 MG/DL (70-100); POTASSIUM SERUM 3.4 MEQ/L (3.5-5.1); SODIUM LEVEL 139 MEQ/L (136-145); TOTAL PROTEIN 5.2 GM/DL (6.4-8.2)
[2020-02-17 06:38] LABS: ATYPICAL LYMPH 5 % (0-5); LYMPHOCYTES 35 % (16-44); MONOCYTES 13 % (0-5); NEUTROPHILS 47 % (28-66); PLATELET ESTIMATE NORMAL (NORMAL)
[2020-02-17 06:39] LABS: POLYCHROMASIA 1+
[2020-02-17] MEDS: ASCORBIC ACID 500 MG TAB PO SCH (08:19)
[2020-02-17] MEDS: FERROUS SULFATE 325MG TAB PO SCH ×2 (08:20→21:13)
[2020-02-17] MEDS: NYSTATIN 500,000 U/5 ML SUSP UDC SS SCH ×3 (08:20→21:13)
[2020-02-17] MEDS: PANTOPRAZOLE 40MG TAB (PROTONIX) PO SCH (08:20)
[2020-02-17] MEDS: FUROSEMIDE 40MG/4ML VIAL (J1940) IV SCH (08:20)
[2020-02-17] MEDS: FOLIC ACID 1 MG TAB PO SCH (08:20)
[2020-02-17] MEDS ORDERED: POTASSIUM CHLORIDE 10 MEQ SR TABLET PO ONE (09:00)
[2020-02-17] MEDS ORDERED: DARBEPOETIN 100 MCG/0.5 ML *NON-DIALYSIS* SYRINGE (J0881) SC SCH (09:00)
--- NOTE | 2020-02-17 13:42 | IPN ---
DATE: 02/17/2020 Mr. Olmedo is seen this morning on his bedside. He is feeling well and denies any new complaints. He is feeling bored. There is no nausea, vomiting, dyspnea, chest pain or leg edema. On physical examination, temperature 99.7 degrees Fahrenheit, heart rate 78 per minute and respiratory rate 19 per minute. Blood pressure 112/70 mmHg and oxygen saturation 95% on room air. Head is atraumatic. Neck supple and without jugular venous distention (JVD) or thyroid enlargement. There is no oral thrush or ulcers. Heart sounds are regular and lungs clear to auscultation. Abdomen: Soft and nontender. Bowel sounds are normal. Extremities: Without any cyanosis or clubbing. Neurologically, he is awake, alert and oriented x3. Today's labs show WBC count 5.4, hemoglobin 7.5 and hematocrit 22.7. Platelets 141. Sodium 139, potassium 3.4, BUN 11 and creatinine 0.92. Glucose 102 and calcium 7.8. AST is down to 57, ALT 120, and alkaline phosphatase 129. Bilirubin is 2.3. Total protein 5.2 and albumin 2.6. PROBLEMS: 1. Acute kidney injury. Kidney function has returned back to normal. At this point from a renal standpoint, he is doing very well. 2. Hypokalemia. This is mild and likely to improve with just oral supplement. He has been given one dose of potassium chloride. He should be on a regular diet. I do not feel that the patient needs a diuretic at this point. 3. Anemia. His anemia leveled off with hemoglobin of 7.5. He is given Aranesp 100 mcg a day. 4. Hepatic dysfunction. Slight improvement in his liver enzymes is noted. He remains off Dapsone now. All in all from a renal standpoint, the patient is doing very well. Once his anemia improves, then he can probably be discharged to home.
[2020-02-17] MEDS: THIAMINE 100 MG TAB PO SCH (13:52)
[2020-02-17 14:00] VITALS: BP_SYST 138; BP_DIAS 79; BP_DIAS 90
--- NOTE | 2020-02-17 14:28 | IPNPDOC ---
Date Seen The patient was seen on 02/17/20. Progress Note SUBJECTIVE: H/H stayed at 7.5/22.9. S/p aranesp injection. Other labs continue to improve, Cr now normal. Suspicious for hemolysis but cause is still under investigation, labs pending. No signs of acute bleeding. GI and nephrology following. Denies chest pain, n/v/d, bleeding, shortness of breath. OBJECTIVE: VITAL SIGNS: Please see below PHYSICAL EXAMINATION: CONSTITUTIONAL: No acute distress, resting comfortably, AAO x 3 EYES: PERRLA, EOM intact, mildly yellow sclera HENT, MOUTH: Normocephalic, atraumatic, moist mucous membranes, thrush on tongue-improving NECK: SUPPLE, no JVD, no lymphadenopathy, no carotid bruit CV: Regular rate and rhythm, S1S2 normal, no murmurs/rubs/gallops RESPIRATORY: Clear to auscultation bilaterally, no rales/rhonchi/wheezes GI: obese, BS positive in 4 quadrants, soft, nontender, nondistended, no rebound or guarding, no organomegaly : Deferred MUSCULOSKELETAL: Normal ROM. No cyanosis, clubbing, swelling, joint deformity, extremity edema INTEGUMENTARY: resolved rash on back. yellow tint to skin-improving. Intact, no lesions, no erythema NEUROLOGIC: Cranial Nerves II-XII are intact, no focal deficits PSYCHIATRIC: Mood and affect are normal LABORATORY DATA: Please see below IMAGING: No new imaging. CURRENT MEDICATIONS: Please see below. ASSESSMENT: 59 y/o male admitted for acute drug-induced hepatotoxicity, acute renal failure r/o hemolytic syndrome. PLAN: 1. Anemia. Could be multifactorial with likely chronic iron deficiency anemia and ruling out hemolytic syndrome. H/H same as 02/16/20, caution for transfusion due to risk of hemolysis. Iron low. No bleeding, T bili decreased. Peripheral smear showed only macrocytic cells. Haptoglobin, G6PD test pending. Monitor for signs of bleeding. C/w aranesp, ferrous sulfate BID, Vitamin C, folic acid supplementation. 2. Acute kidney injury likely nephrotoxicity caused by medications vs hemolysis- induced kidney injury. Creatinine improved. Encourage adequate PO intake. F/u daily CMP. Avoid nephrotoxic medications. Nephrology following. 3. Acute hepatotoxicity, drug induced 2/2 to dapsone. Improving hyperbilirubinemia, transaminitis, jaundice. Hepatitis panel neg. F/u daily labs and avoid hepatotoxic medications. GI following. 4. Skin rash on upper and lower back. ? autoimmune etiology. ANCA pending. Rash currently resolved 5. Oral thrush. Improving. C/w Nystatin swish and swallow TID 6. Elevated BNP likely 2/2 to fluid administration. No lower ext swelling or crackles on exam, no signs of fluid overload. No prior hx of CHF. Monitor fluid status. 7. Shortness of breath and cough. Chest x-ray negative on admission, currently on room air saturating well. Had a recent Covid 19 screen which was negative over the past week. Likely another viral etiology? Continue to monitor 8. REBEKA. 2 L NC overnight at home, noncompliant with CPAP machine. 9. Gout. Holding allopurinol. 10. Osteoarthritis. Stable. 11. Anxiety. Stable. 14. DVT px. Holding off on heparin with ? hemolysis. Encourage ambulation, SCD. DISPOSITION: Admitted under inpatient status. Plan is discharge home when anemia starts showing improvement. GI and nephrology consulted. VS, I&O, 24H, [facility] Vital Signs/I&O Vital Signs Date Time Temp Pulse Resp B/P (MAP) Pulse Ox O2 Delivery O2 Flow Rate FiO2 02/17/20 06:00 99.7 78 19 112/70 (84) 95 Room Air 02/16/20 06:00 2.0 I&O- Last 24 Hours up to 6 AM 02/17/20 06:00 Intake Total 3070 ml Output Total 425 ml Balance 2645 ml Laboratory Data 24H LABS Laboratory Tests 2 02/17/20 05:33: Neutrophils (%) (Auto) , Nucleated Red Blood Cells % (auto) 0.0, Neutrophils 47, Lymphocytes (Manual) 35, Monocytes (Manual) 13H, Atypical Lymphocytes 5, Polychromasia 1+, Macrocytosis 2+, Platelet Estimate NORMAL, Anion Gap 7L, Glomerular Filtration Rate > 60.0, Calcium Level 7.8L, Total Bilirubin 2.3H, Aspartate Amino Transf (AST/SGOT) 67H, Alanine Aminotransferase (ALT/SGPT) 120H, Alkaline Phosphatase 129H, Total Protein 5.2L, Albumin 2.6L, Albumin/Globulin Ratio 1.00 CBC/BMP Laboratory Tests 02/17/20 05:33 Microbiology Microbiology 02/14/20 Blood Culture - Preliminary, Resulted No Growth after 48 hours. All Specime... 02/14/20 Blood Culture - Preliminary, Resulted No Growth after 48 hours. All Specime... Current Medications Current Medications Medications (Trade) Dose Ordered Sig/Serg Route PRN Reason Start Time Stop Time Status Last Admin Dose Admin Ascorbic Acid (Vitamin C) 500 mg DAILY PO 02/16/20 09:00 02/17/20 08:19 Darbepoetin Mayo (Aranesp) 100 mcg Kellogg@09 SC 02/17/20 09:00 02/17/20 08:19 Ferrous Sulfate (Ferrous Sulfate) 325 mg BID PO 02/16/20 09:00 02/17/20 08:20 Folic Acid (Folic Acid) 4 mg DAILY PO 02/16/20 09:00 02/17/20 08:20 Furosemide (LASIX injection) 40 mg DAILY IV 02/17/20 09:00 02/17/20 08:20 Home Med (Med Rec Complete!) ASDIRECTED XX 02/14/20 17:15 02/14/20 17:08 DC Nystatin (Mycostatin) 5 ml TID SS 02/14/20 21:00 02/17/20 08:20 Pantoprazole Sodium (Protonix) 40 mg DAILY PO 02/15/20 09:00 02/17/20 08:20 Sodium Chloride 1,000 ml @ 120 mls/hr Q8H20M IV 02/14/20 16:45 02/14/20 18:45 DC 02/14/20 17:16 Sodium Chloride 1,000 ml @ 125 mls/hr Q8H IV 02/14/20 18:45 02/15/20 15:56 DC 02/15/20 09:27 Thiamine HCl (Thiamine HCl) 100 mg DAILY PO 02/17/20 13:00 02/17/20 13:52 Allergies Coded Allergies: No Known Allergies (Verified Allergy, Unknown, 02/14/20) Margarette Soni MD Feb 17, 2020 14:28
[2020-02-17] MEDS ORDERED: ACETAMINOPHEN TAB 650MG DOSE (2X325MG) PO PRN (17:45)
[2020-02-17 22:00] VITALS: BP 140/71
[2020-02-18 05:51] LABS: BASO % 0.5 % (0.0-1.0); HEMATOCRIT 23.5 % (42.0-52.0); HEMOGLOBIN 7.9 g/dl (13.5-17.5); LYMPH # 2.4 10^3/uL (1.5-5.0); LYMPH % 40.8 % (24.0-44.0); MEAN CORPUSCULAR HEMOGLOBIN 35.6 pg (27.0-33.0); MEAN CORPUSCULAR HGB CONC 33.6 g/dl (32.0-36.5); MEAN CORPUSCULAR VOLUME 105.9 fl (80.0-96.0); MONO # 0.8 10^3/uL (0.0-0.8); MONO % 14.5 % (0.0-5.0); NEUTROPHILS # 2.5 10^3/uL (1.5-8.5); NEUTROPHILS % 43.2 % (36.0-66.0); PLATELET COUNT, AUTOMATED 164 10^3/uL (150-450); RED BLOOD COUNT 2.22 10^6/uL (4.30-6.10); WHITE BLOOD COUNT 5.8 10^3/uL (4.0-10.0)
[2020-02-18 06:00] VITALS: BP 118/72
[2020-02-18 06:16] LABS: ALBUMIN 2.8 GM/DL (3.2-5.2); ALT/SGPT 112 U/L (12-78); BILIRUBIN,TOTAL 1.8 MG/DL (0.2-1.0); BLOOD UREA NITROGEN 10 MG/DL (7-18); CALCIUM LEVEL 7.9 MG/DL (8.8-10.2); CARBON DIOXIDE LEVEL 28 MEQ/L (21-32); CHLORIDE LEVEL 102 MEQ/L (98-107); CREATININE FOR GFR 0.86 MG/DL (0.70-1.30); GLOMERULAR FILTRATION RATE > 60.0 (>49); GLUCOSE, FASTING 104 MG/DL (70-100); POTASSIUM SERUM 3.6 MEQ/L (3.5-5.1); SODIUM LEVEL 137 MEQ/L (136-145); TOTAL PROTEIN 5.3 GM/DL (6.4-8.2)
[2020-02-18] MEDS: PANTOPRAZOLE 40MG TAB (PROTONIX) PO SCH (08:15)
[2020-02-18] MEDS: THIAMINE 100 MG TAB PO SCH (08:15)
[2020-02-18] MEDS: FERROUS SULFATE 325MG TAB PO SCH (08:15)
[2020-02-18] MEDS: ASCORBIC ACID 500 MG TAB PO SCH (08:15)
[2020-02-18] MEDS: FUROSEMIDE 40MG/4ML VIAL (J1940) IV SCH (08:16)
[2020-02-18] MEDS: NYSTATIN 500,000 U/5 ML SUSP UDC SS SCH (08:16)
[2020-02-18] MEDS: FOLIC ACID 1 MG TAB PO SCH (08:16)
[2020-02-18] MEDS ORDERED: FERR325T18 PO (08:21)
[2020-02-18] MEDS ORDERED: ASCO50TA PO (08:21)
[2020-02-18] MEDS ORDERED: FOLI1TAB11 PO (08:21)
[2020-02-18] MEDS ORDERED: predniSONE 20 MG TAB PO SCH (09:00)
[2020-02-18 10:20] LABS: URIC ACID 6.2 MG/DL (3.5-7.2)
[2020-02-18 13:28] VITALS: BP 153/82
[2020-02-18 13:29] VITALS: BP 157/82
[2020-02-18 13:30] VITALS: BP 147/96
--- NOTE | 2020-02-18 15:00 | IPN ---
DATE OF VISIT: 02/18/2020 Mr. Olmedo is seen this morning on his bedside. He is feeling well and denies any complaints. He has been getting intravenous Lasix and did get one dose this morning. He has no peripheral edema, dyspnea or chest pain. He denies any nausea or vomiting and oral intake has been good. He has a complaint of pain in the big toe of both feet. On physical exam, temperature 97.9 degrees Fahrenheit, heart rate 70 per minute and respiratory rate 18 per minute. Blood pressure 118/72 mmHg and oxygen saturation 98% on room air. Head is atraumatic. Neck is supple and without jugular venous distention (JVD) or thyroid enlargement. There is no oral thrush or ulcers. Heart sounds regular and lungs clear to auscultation. Abdomen soft and nontender and bowel sounds are normal. Extremities without any cyanosis or clubbing. Neurologically he is awake, alert and oriented times three. Today's labs show WBC count 5.8, hemoglobin 7.9 and hematocrit 23.5. Platelets 164. Sodium 137, potassium 3.6, BUN 10 and creatinine 0.86. Uric acid level is 6.2 and calcium 7.9. Bilirubin is down to 1.8, AST 557, ALT 112 and alkaline phosphatase 139. Serum albumin is 2.8. PROBLEMS: 1. Acute renal failure. Kidney function has improved and back to normal. At this point, his oral intake is adequate and he does not need a diuretic or IV fluid. 2. Hypokalemia. His potassium level has also improved. Hypokalemia was most likely induced by diuretics, which he does not need. I am going to stop his intravenous Lasix. 3. Gout. Patient has pain in the big toes and tenderness which is most likely acute gout. I am going to treat him with prednisone 20 mg twice a day for a couple of days. 4. Anemia. Most likely patient had hemolytic anemia caused by dapsone. His anemia has started to improve as he received Aranesp 100 mcg yesterday. His platelets have also improved. I feel that patient will continue to improve now as he has been off dapsone for several days. This can be followed up as an outpatient. 5. Hypertension. His blood pressure is controlled at present without any medications and he can probably followup with his primary physician as an outpatient. He was taking olmesartan along with hydrochlorothiazide which is probably not the best idea with his history of gout. He does not need a diuretic at this point. I will keep him off his antihypertensives for now. 6. History of chronic gout. Patient was on allopurinol 100 mg daily at home and I will resume that. He should not take nonsteroidal anti-inflammatory drugs (NSAIDs) at this point. DISPOSITION: From a renal standpoint, patient can be discharged to home and followup as an outpatient. I will be pleased to follow him for anemia and resuming his antihypertensive meds. Otherwise, he can followup with his primary physician.
--- NOTE | 2020-02-18 17:44 | DS.PDOC ---
Discharge Summary General Date of Admission Feb 14, 2020 at 17:47 Date of Discharge 02/18/20 Primary Care Physician: A Attending Physician: Margarette Soni MD Specialist/Consultants Involve: JOSE QUINTERO MD Specialist/Consultants Involve Dr. Frank Discharge Summary HISTORY OF PRESENT ILLNESS: Patient is a 59-year-old male with past medical history of obesity, gout, anxiety, GERD, osteoarthritis of the lower back, history of kidney stones and back rash who presented to [facility] from his primary care office today after having episode of syncope. The patient states that over the past 3 weeks he has been taking to prescribe medication dapsone for a "hivelike" rash that has a present on his back for the past several months. He had tried prednisone prior to that which he felt helped with the rash. He stopped the dapsone one week ago because he had been feeling increasingly lethargic, dizzy, lightheaded, decreased appetite, increased shortness of breath with a nonproductive cough, nausea with some vomiting 1. He also noticed that his urine was very dark in color and his skin was turning more yellow. He did not notice an improvement in the rash. He denies chest pain. He went to see his primary care doctor today and while he was there he experienced some lightheadedness and dizziness, loss consciousness and fell to the ground all knee for several seconds. When he came to again he was confused. EMS was called and blood pressure was checked. Systolic blood pressure was 84 mmHg. the patient denies any new medications outside of dapsone, changes in his diet. Of note, for his cough and new shortness of breath he was tested for Covid 19 by the outpatient clinic this past week and results came back negative. In the emergency room the patient's blood pressure 90/55, all other vital signs were within normal limits. Chest x-ray showed no acute disease. He had multiple abnormal labs including sodium 132, chloride 97, H&H 9.2 27.6, creatinine 3.2 (no known kidney disease), T bili 5.8, D bili 1.9, AST 135, ALT 147, alkaline phosphatase 126. The patient appeared jaundiced with yellowed skin and yellow sclera. On examination the patient had oral thrush on his tongue, noting that the patient had just completed several weeks of prednisone prior to starting the dapsone. He had a very light pink flattened and scaled rash all throughout his back, very faint. The patient received 500 mL bolus and was started on 120 mL of fluid of normal saline blood pressure improved over time. Last blood pressure recorded 132/90 in the ER. The patient denies shortness of breath currently. Nephrology and GI were contacted, case was discussed with both. They will both the consults on this case. Patient was admitted for acute drug induced hepatotoxicity, acute kidney failure likely multifactorial 2/2 to dapsone and dehydration. HOSPITAL COURSE: The patient was continued on IV fluids for several days showing marked improvement and biliary numbers and creatinine. Jaundice also was gradually improving. There was a concern for hemolysis and G6PD studies, indirect Wing, direct Louie, ANCA studies were ordered. LDH was increased concerning for hemolysis. Peripheral smear was ultimately negative for cells outside of macrocytes. Folic acid was borderline low, iron was low. He was seen by nephrology who gave an Aranesp injection. Indirect Louie test, direct Louie test came back negative. His H&H dropped as low as 7.5/22.9 but later improved to 7.9/23.5. The patient had been on Jaimes cath supplementation and also ferric sulfate supplementation. BNP increased to over 3000 during his hospital stay and the patient received 2 doses of IV Lasix. There was no concern for heart failure. The patient complained of some bilateral large toe swelling consistent with gout, which he has a history of. His oral thrush improved with the nystatin 4 times a day. On 02/18/2020 the patient was discharged home after showing marked improvement with the diagnosis of direct hemolysis likely secondary to dapsone. It was unlikely antibiotic mediated pollicis. Haptoglobin, G6PD, ANCA are still pending but upon follow-up with gastroenterology, patient will be given results if they are back at that time. At the time of discharge the patient denied chest pain, abdominal pain, nausea, vomiting, fevers, chills. REVIEW OF SYSTEMS: CONSTITUTIONAL: Denies unexplained weight gain or weight loss, fever, night sweats EYES: Denies eye drainage, eye pain, visual changes, dry/irritated eye EARS, NOSE, MOUTH, THROAT: Denies difficulty hearing, ringing in ears, mouth sores, loose teeth, sore throat, facial numbness or pain NECK: Denies swollen glands CARDIOVASCULAR: Denies irregular heartbeat, racing heart, chest pains, swelling of feet or legs, pain in legs with walking RESPIRATORY: Denies night sweats, wheezing, sputum production, oxygen at home, coughing up blood, cough lasting > 1 month GASTROINTESTINAL: Denies abdominal pain, constipation, bloody stool, heartburn GENITOURINARY: Denies painful urination, bloody urine, frequent urination, urgency, leaking urine, impotence MUSCULOSKELETAL: Denies muscle pain, leg swelling INTEGUMENTARY: Denies itching, change in existing skin lesion, hair loss or increase, breast changes. NEUROLOGICAL: Denies headaches, difficulty walking, numbness or tingling PSYCHIATRIC: Denies depression, anxiety, recurrent bad thoughts, mood swings, hallucinations PAST MEDICAL HISTORY: 1. Obesity 2. Back rash 3. Gout 4. Anxiety 5. GERD 6. Chronic low back pain 7. Osteoarthritis of the back 8. History of kidney stones PAST SURGICAL HISTORY: 1. Cholecystectomy 2. Right knee surgery 2 FAMILY HISTORY: Father: CAD, diabetes. at 59 years old Mother: Hypertension, alive. Siblings: Brotherdiabetes mellitus. Alive SOCIAL HISTORY: The patient denies smoking or drug use history. He drinks alcohol socially. 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 His primary care provider is Alonzo Mcclelland. He follows with a calender machine operator helper in [place], Dr. Rondon. He has no living will or healthcare proxy. He is a full code. ALLERGIES: Please see below. PHYSICAL EXAMINATION: CONSTITUTIONAL: No acute distress, resting comfortably, AAO x 3 EYES: PERRLA, EOM intact, mildly yellow sclera HENT, MOUTH: Normocephalic, atraumatic, moist mucous membranes, thrush on tongue-improving NECK: SUPPLE, no JVD, no lymphadenopathy, no carotid bruit CV: Regular rate and rhythm, S1S2 normal, no murmurs/rubs/gallops RESPIRATORY: Clear to auscultation bilaterally, no rales/rhonchi/wheezes GI: obese, BS positive in 4 quadrants, soft, nontender, nondistended, no rebound or guarding, no organomegaly : Deferred MUSCULOSKELETAL: Normal ROM. No cyanosis, clubbing, swelling, mild swelling with tenderness on bilateral proximal phalanx of large toes INTEGUMENTARY: resolved rash on back. yellow tint to skin-improving. Intact, no lesions, no erythema NEUROLOGIC: Cranial Nerves II-XII are intact, no focal deficits PSYCHIATRIC: Mood and affect are normal LABORATORY: DISCHARGE MEDICATIONS: Please see below IMAGING: CXR: No acute infiltrate. CT abd/pelvis: Mild hepatic steatosis No acute abnormality. Left greater than right nephrolithiasis without obstructive uropathy. CT head: No acute intracranial abnormality ASSESSMENT: 59 y/o male admitted for acute drug-induced hepatotoxicity, acute renal failure, . PLAN: 1. Direct hemolysis likely secondary to dapsone administration. Improving. No signs of bleeding. T bili improved along with liver studies. Patient is advised to continue to drink adequate fluid (approx 110 ounces water daily for size) and f/u closely with PCP to repeat CMP, CBC in 1 weeks time. Dapsone is added as allergy. G6PD, haptoglobin, ANCA pending and will be reported to patient on visit with GI (Dr. Quintero) on follow up visit. 2. Anemia likely multifactorial with likely chronic iron deficiency anemia, folic acid deficiency and acute hemolytic syndrome 2/2 dapson. H/H improving. Started on folic guido, ferrous sulfate, vitamin C supplementation. Follow plan for problem #1 as well. Needs monitoring of CBC by PCP closely. 3. Acute kidney injury likely nephrotoxicity caused by medications vs hemolysis- induced kidney injury. Resolved. Creatinine wnl. 4. Acute hepatotoxicity, drug induced 2/2 to dapsone. Improving hyperbilirubinemia, transaminitis, jaundice. Hepatitis panel neg. Recommend f/u CMP in one week's time. 5. Skin rash on upper and lower back. ? autoimmune etiology. ANCA pending. Rash currently resolved 6. Oral thrush. Improving. C/w Nystatin swish and swallow TID 7. REBEKA. 2 L NC overnight at home, noncompliant with CPAP machine. 8. Gout. Swelling noted bilateral feet. Restart home allopurinol. If worsens may need colchicine. 9. Osteoarthritis. Stable. 10. Anxiety. Stable. DISPOSITION: Much improved with treatment provided. Plan is for patient to follow up with PCP, GI as outpatient. TIME SPENT ON DISCHARGE: 35 minutes. Vital Signs/I&Os Vital Signs Date Time Temp Pulse Resp B/P (MAP) Pulse Ox O2 Delivery O2 Flow Rate FiO2 02/18/20 13:30 147/96 (113) 02/18/20 06:00 97.9 71 19 98 Room Air 02/16/20 06:00 2.0 I&O- Last 24 Hours up to 6 AM 02/18/20 06:00 Intake Total 2670 ml Output Total 0 ml Balance 2670 ml Laboratory Data Labs 24H Laboratory Tests 2 02/18/20 05:27: Immature Granulocyte % (Auto) 1.0, Neutrophils (%) (Auto) 43.2, Lymphocytes (%) (Auto) 40.8, Monocytes (%) (Auto) 14.5H, Eosinophils (%) (Auto) 0.0, Basophils (%) (Auto) 0.5, Neutrophils # (Auto) 2.5, Lymphocytes # (Auto) 2.4, Monocytes # (Auto) 0.8, Eosinophils # (Auto) 0.0, Basophils # (Auto) 0.0, Nucleated Red Blood Cells % (auto) 0.0, Anion Gap 7L, Glomerular Filtration Rate > 60.0, Uric Acid 6.2, Calcium Level 7.9L, Total Bilirubin 1.8H, Aspartate Amino Transf (AST/SGOT) 57H, Alanine Aminotransferase (ALT/SGPT) 112H, Alkaline Phosphatase 139H, Total Protein 5.3L, Albumin 2.8L, Albumin/Globulin Ratio 1.12 CBC/BMP Laboratory Tests 02/18/20 05:27 Microbiology Microbiology 02/14/20 Blood Culture - Preliminary, Resulted No Growth after 72 hours. All specime... 02/14/20 Blood Culture - Preliminary, Resulted No Growth after 72 hours. All specime... Discharge Medications Scheduled Allopurinol (Allopurinol) 100 Mg Tablet, 100 MG PO DAILY, (Reported) Ascorbic Acid (Vitamin C) 500 Mg Tablet, 500 MG PO DAILY Celecoxib (Celecoxib) 200 Mg Capsule, 200 MG PO DAILY, (Reported) Cetirizine HCl (Cetirizine HCl) 10 Mg Tablet, 10 MG PO DAILYPRN, (Reported) Ferrous Sulfate (Ferrous Sulfate) 325 Mg Tablet, 325 MG PO BID Folic Acid (Folic Acid) 1 Mg Tablet, 1 MG PO DAILY Nystatin (Nystatin Oral Susp) 100,000 Unit/1 Ml Oral.susp, 5 ML PO QID Olmesartan/Hydrochlorothiazide (Olmesartan-Hctz 40-25 mg Tab) 1 Each Tablet, 1 TAB PO DAILY, (Reported) Pantoprazole Sodium (Pantoprazole Sodium) 40 Mg Tablet.dr, 40 MG PO DAILY, (Reported) Paroxetine HCl (Paroxetine HCl) 20 Mg Tablet, 20 MG PO DAILY, (Reported) Allergies Coded Allergies: dapsone (Verified Allergy, Severe, hemolysis, 02/18/20) Margarette Soni MD Feb 18, 2020 17:44
[2020-02-18] MEDS ORDERED: NYST50SS PO (17:49)
[2020-02-19 00:10] LABS: G6PD2 2.12 x10E6/uL (4.14-5.80)
[2020-02-19] MEDS ORDERED: allopurinoL 100 MG TAB PO SCH (09:00)
[2020-02-20 00:10] LABS: ANCA-ATYPICAL 1:20 titer (Neg:<1:20); CYTOPLASMIC NEUTROP AB ANCA-C <1:20 titer (Neg:<1:20); HAPTOGLOBIN < 10 mg/dL (29-370); PERINUCLEAR AB ANCA-P <1:20 titer (Neg:<1:20)
== END 2020-02-18 13:40 | disposition home or self-care (01) | DRG 682 ==
LOC: M ED 14:53 → EDBD 14:53 → M ED INP 17:47 → ENRESERV 22:27 → M MSPAV 23:07
PROVIDERS: ADMIT Internal Medicine; ATTEND Internal Medicine
DX: N17.9 Acute kidney failure, unspecified (principal); D59.3 Hemolytic-uremic syndrome; B37.0 Candidal stomatitis; B17.9 Acute viral hepatitis, unspecified; E87.1 Hypo-osmolality and hyponatremia; D75.9 Disease of blood and blood-forming organs, unspecified; T37.1X5A Adverse effect of antimycobacterial drugs, initial encounter; K21.9 Gastro-esophageal reflux disease without esophagitis; M10.30 Gout due to renal impairment, unspecified site; M19.90 Unspecified osteoarthritis, unspecified site; F41.9 Anxiety disorder, unspecified; M54.5 Low back pain; D50.9 Iron deficiency anemia, unspecified; R21 Rash and other nonspecific skin eruption; G47.33 Obstructive sleep apnea (adult) (pediatric); Z79.899 Other long term (current) drug therapy; Z88.8 Allergy status to other drugs, medicaments and biological substances; E66.9 Obesity, unspecified; Z87.442 Personal history of urinary calculi; I95.9 Hypotension, unspecified; E86.0 Dehydration; E87.6 Hypokalemia; I10 Essential (primary) hypertension

== ENCOUNTER 2020-02-25 15:51 | Emergency (ER) | payer OTHER ==
[~2020-02-25] VITALS: Ht 177.8 cm; Wt 113.1 kg
[~2020-02-25 15:51] MED LIST changes: -ELIQ5TAB PO
[2020-02-25 16:38] LABS: HEMATOCRIT 29.8 % (42.0-52.0); HEMOGLOBIN 9.5 g/dl (13.5-17.5); MEAN CORPUSCULAR HGB CONC 31.9 g/dl (32.0-36.5); MEAN CORPUSCULAR VOLUME 103.5 fl (80.0-96.0); PLATELET COUNT, AUTOMATED 394 10^3/uL (150-450); RED BLOOD COUNT 2.88 10^6/uL (4.30-6.10); WHITE BLOOD COUNT 5.6 10^3/uL (4.0-10.0)
[2020-02-25 16:47] LABS: INR 1.19; PROTHROMBIN TIME 14.9 SECONDS (11.8-14.0)
[2020-02-25 16:48] LABS: PARTIAL THROMBOPLASTIN TIME 29.5 SECONDS (25.0-38.4)
[2020-02-25 16:58] LABS: BLOOD UREA NITROGEN 13 MG/DL (7-18); CALCIUM LEVEL 8.8 MG/DL (8.8-10.2); CARBON DIOXIDE LEVEL 29 MEQ/L (21-32); CHLORIDE LEVEL 108 MEQ/L (98-107); CREATININE FOR GFR 0.94 MG/DL (0.70-1.30); GLOMERULAR FILTRATION RATE > 60.0 (>49); GLUCOSE, FASTING 92 MG/DL (70-100); POTASSIUM SERUM 3.9 MEQ/L (3.5-5.1); SODIUM LEVEL 145 MEQ/L (136-145)
[2020-02-25] MEDS ORDERED: ELIQ5TAB PO (17:18)
[2020-02-25] MEDS ORDERED: APIXABAN 5 MG TAB (ELIQUIS) PO ONE (17:30)
[2020-02-25 17:39] VITALS: BP 124/82
[2020-02-26 10:31] LABS: DRVV SCREEN 42.5 SEC
[2020-02-26 10:34] LABS: PTT LUPUS TYPE ANTICOAG SCREEN 1.1 (0-1.2)
[2020-03-03 14:07] LABS: ANTI THROMBIN 3 ANTIGEN IMMUNO 73 % (72-124); ANTI THROMBIN 3 FUNCT ACTIVITY 95 % (75-135); CARDIOLIPIN IGA ANTIBODY 12 APL U/mL (0-11); CARDIOLIPIN IGG ANTIBODY 14 GPL U/mL (0-14); CARDIOLIPIN IGM ANTIBODY <9 MPL U/mL (0-12); PHOSPHOLIPIDS LEVEL 168 mg/dL (150-250); PROTEIN C FUNCTIONAL ACTIVITY 101 % (73-180); PROTEIN S FUNCTIONAL ACTIVITY 87 % (63-140)
[2020-03-12] MEDS ORDERED: HYDR-3363 PO (14:14)
[2020-03-12] MEDS ORDERED: LORA-674 PO (14:14)
[2020-03-12] MEDS ORDERED: ELIQ5TAB PO (14:52)
== END 2020-02-25 17:40 | disposition home or self-care (01) ==
LOC: M ED 15:51
DX: I82.432 Acute embolism and thrombosis of left popliteal vein (principal); I10 Essential (primary) hypertension; G47.30 Sleep apnea, unspecified; Z88.8 Allergy status to other drugs, medicaments and biological substances; Z79.899 Other long term (current) drug therapy; Z79.02 Long term (current) use of antithrombotics/antiplatelets

== ENCOUNTER → 2020-02-25 | Outpatient (CLI) | payer OTHER ==
[~2020-02-25] MED LIST: ALL10TAB29 PO; ALLO100T PO; ASCO50TA PO; CELE1CAP9 PO; ELIQ5TAB PO; FERR325T18 PO; FOLI1TAB11 PO; NYST50SS PO; OLME1TAB47 PO; PANT40TA3 PO; PARO20TA3 PO
--- NOTE | 2020-02-25 15:46 | REP ---
DUPLEX EXTREMITY VENOUS ULTRASOUND: Left lower extremity. HISTORY: Left calf pain times 3 days. Recent hospitalization. FINDINGS: The deep veins are anechoic and fully compressible from the groin to the popliteal fossa in the left lower extremity. Color flow imaging is homogeneous. Spectral Doppler interrogation demonstrates intact respiratory variation in flow and normal manual augmentation of flow. However, below the knees, there is occlusive thrombus in the posterior tibial veins in the proximal and mid calf on the left side. The venous confluence, popliteal vein and more proximal deep veins are clear. IMPRESSION: The study is positive for deep vein thrombosis below the knee in the two popliteal veins in the calf on the left side. There is no evidence of DVT above the knee. Electronically Signed by Sravan Tijerina MD 02/25/2020 04:41 P
== END ==
LOC: M RAD 15:03
PROVIDERS: ATTEND Physician Assistant
DX: M79.605 Pain in left leg (principal)

== ENCOUNTER → 2020-03-03 | Outpatient (CLI) | payer OTHER ==
[~2020-03-03] MED LIST changes: +ELIQ5TAB PO
[2020-03-03 12:36] LABS: COMPLEMENT C3 138 MG/DL (90-180); COMPLEMENT C4 21 MG/DL (10-40); RHEUMATOID FACTOR QUANT < 10.0 IU/ML (<15.0)
[2020-03-03 12:45] LABS: THYROGLOBULIN ANTIBODY < 15.0 U/ML (<60.0); THYROID PEROXIDASE ANTIBODY < 28.0 U/ML (<60.0)
[2020-03-08 00:07] LABS: ANTINUCLEAR ANTIBODIES DIRECT Negative (Negative); COMPLEMENT TOTAL (CH50) > 60 U/mL (>41)
== END ==
LOC: M LAB 11:29
PROVIDERS: ATTEND Allergy & Immunology Allergy
DX: L50.1 Idiopathic urticaria (principal)

== ENCOUNTER → 2020-03-11 | Outpatient (REF) | payer OTHER ==
[~2020-03-11] MED LIST changes: +HYDR-3363 PO; +LORA-674 PO
[2020-03-11 13:28] LABS: BASO # 0.1 10^3/uL (0.0-0.2); BASO % 0.8 % (0.0-1.0); HEMATOCRIT 39.6 % (42.0-52.0); HEMOGLOBIN 13.2 g/dl (13.5-17.5); LYMPH # 1.7 10^3/uL (1.5-5.0); LYMPH % 28.1 % (24.0-44.0); MEAN CORPUSCULAR HEMOGLOBIN 32.8 pg (27.0-33.0); MEAN CORPUSCULAR HGB CONC 33.3 g/dl (32.0-36.5); MEAN CORPUSCULAR VOLUME 98.3 fl (80.0-96.0); MONO # 0.6 10^3/uL (0.0-0.8); MONO % 9.5 % (0.0-5.0); NEUTROPHILS # 3.7 10^3/uL (1.5-8.5); NEUTROPHILS % 61.3 % (36.0-66.0); PLATELET COUNT, AUTOMATED 192 10^3/uL (150-450); RED BLOOD COUNT 4.03 10^6/uL (4.30-6.10)
[2020-03-11 14:30] LABS: ALBUMIN 3.6 GM/DL (3.2-5.2); ALT/SGPT 41 U/L (12-78); BILIRUBIN,DIRECT 0.3 MG/DL (0.0-0.2); BILIRUBIN,TOTAL 0.7 MG/DL (0.2-1.0); BLOOD UREA NITROGEN 11 MG/DL (7-18); CREATININE FOR GFR 0.88 MG/DL (0.70-1.30); GLOMERULAR FILTRATION RATE > 60.0 (>49); LDH LACTATE DEHYDROGENASE 206 U/L (87-241); TOTAL PROTEIN 6.8 GM/DL (6.4-8.2)
== END ==
LOC: M LABDRWAD 12:50
PROVIDERS: ATTEND Internal Medicine Gastroenterology
DX: D59.8 Other acquired hemolytic anemias (principal)

== ENCOUNTER → 2020-03-24 | Outpatient (REF) | payer OTHER | LOC: M LABDRWAD 12:38 | PROVIDERS: ATTEND Internal Medicine Medical Oncology | DX: I82.402 Acute embolism and thrombosis of unspecified deep veins of left lower extremity (principal) ==

== ENCOUNTER → 2020-05-30 | Outpatient (REF) | payer OTHER ==
[~2020-05-30] MED LIST changes: -ALL10TAB29 PO; +CETI-24 PO; +PANT40TA29 PO; -PANT40TA3 PO
[2020-06-30 10:48] LABS: DRVV SCREEN 64.8 SEC; PTT LUPUS TYPE ANTICOAG SCREEN 1.6 (0-1.2)
[2020-06-30 10:49] LABS: DRVV CONFIRM 59.6 SEC; LUPUS CONFIRM RATIO 1.6
== END ==
LOC: M LABDRWAD 17:28
PROVIDERS: ATTEND Internal Medicine Hematology & Oncology
DX: Z00.00 Encounter for general adult medical examination without abnormal findings (principal)

== ENCOUNTER → 2020-12-16 | Outpatient (CLI) | payer OTHER ==
[~2020-12-16] MED LIST changes: +DERM1TAB2 PO; -OLME1TAB47 PO; +OLME1TAB53 PO
--- NOTE | 2020-12-17 15:42 | SLEEPCENT ---
DATE: 12/16/2020 ORDERED BY: Stacy Armas Nocturnal polysomnography was performed for the titration of pressure therapy in this patient with obstructive sleep apnea syndrome, apnea-hypopnea index 8.1. For testing, a ResMed Quattro full-face mask of medium size was used. There was 7 cm of water pressure applied to the circuit, and the lights were extinguished. There was 8 hours and 37 minutes of data reviewed. There was 348.5 minutes of sleep identified. Sleep latency was prolonged at 34 minutes. REM latency prolonged at 161 minutes. Sleep architecture improved with optimal pressure therapy, and 3 REM cycles were appreciated. A period of wake reduced sleep efficiency to 68.1%. The electrocardiogram shows a sinus rhythm with an average heart rate of 50 beats per minute. Rate ranged 40-60. EEG showed reasonably normal waveforms for wake and sleep. Respiratory events were fully palliated with CPAP at a pressure of 13, and remaining measures of sleep physiology were normal. IMPRESSION: Obstructive sleep apnea syndrome (G47.33). RECOMMENDATION: Nightly use of pressure therapy, 13 cm of water.
== END ==
LOC: M SLEEP 20:00
PROVIDERS: ATTEND Nurse Practitioner Adult Health
DX: G47.33 Obstructive sleep apnea (adult) (pediatric) (principal)

== ENCOUNTER → 2021-02-16 | Outpatient (REF) | payer OTHER ==
[2021-02-16 13:58] LABS: PROSTATIC SPECIFIC AG MONITOR 0.96 NG/ML (< 4.00)
== END ==
LOC: M LABDRWAD 12:17
PROVIDERS: ATTEND Nurse Practitioner Adult Health
DX: E29.1 Testicular hypofunction (principal)

== ENCOUNTER 2021-05-12 10:45 | Emergency (ER) | payer OTHER ==
[~2021-05-12] VITALS: Ht 177.8 cm; Wt 118.2 kg
[~2021-05-12 10:45] MED LIST changes: +AMLO1TAB37 PO; +ZINC1TAB2 PO
[2021-05-12] MEDS ORDERED: DOXE25CA (11:00)
[2021-05-12] MEDS ORDERED: CELE1CAP9 PO (11:00)
[2021-05-12] MEDS ORDERED: AMLO2.5T3 PO (11:00)
[2021-05-12] MEDS ORDERED: LOPE1CAP5 PO (11:00)
[2021-05-12] MEDS ORDERED: TEST1.622 TOP (11:00)
[2021-05-12 13:01] LABS: BASO # 0.1 10^3/uL (0.0-0.2); BASO % 0.6 % (0.0-1.0); EOS # 0.1 10^3/uL (0.0-0.5); EOS % 0.8 % (0.0-3.0); HEMATOCRIT 45.7 % (42.0-52.0); HEMOGLOBIN 15.9 g/dl (13.5-17.5); LYMPH # 0.9 10^3/uL (1.5-5.0); LYMPH % 10.3 % (24.0-44.0); MEAN CORPUSCULAR HEMOGLOBIN 31.2 pg (27.0-33.0); MEAN CORPUSCULAR HGB CONC 34.8 g/dl (32.0-36.5); MEAN CORPUSCULAR VOLUME 89.8 fl (80.0-96.0); MONO # 0.6 10^3/uL (0.0-0.8); MONO % 6.5 % (2.0-8.0); NEUTROPHILS # 7.2 10^3/uL (1.5-8.5); NEUTROPHILS % 81.2 % (36.0-66.0); PLATELET COUNT, AUTOMATED 158 10^3/uL (150-450); RED BLOOD COUNT 5.09 10^6/uL (4.30-6.10); WHITE BLOOD COUNT 8.9 10^3/uL (4.0-10.0)
[2021-05-12 13:18] LABS: ALBUMIN 3.8 GM/DL (3.2-5.2); ALT/SGPT 42 U/L (12-78); BILIRUBIN,DIRECT 0.4 MG/DL (0.0-0.2); BILIRUBIN,TOTAL 1.9 MG/DL (0.2-1.0); BLOOD UREA NITROGEN 15 MG/DL (7-18); CALCIUM LEVEL 9.4 MG/DL (8.8-10.2); CARBON DIOXIDE LEVEL 28 MEQ/L (21-32); CHLORIDE LEVEL 107 MEQ/L (98-107); CREATININE FOR GFR 1.02 MG/DL (0.70-1.30); GLOMERULAR FILTRATION RATE > 60.0 (>49); GLUCOSE, FASTING 119 MG/DL (70-100); LIPASE 57 U/L (73-393); POTASSIUM SERUM 3.6 MEQ/L (3.5-5.1); SODIUM LEVEL 141 MEQ/L (136-145); TOTAL PROTEIN 7.1 GM/DL (6.4-8.2)
[2021-05-12] MEDS ORDERED: NS 1,000 ML IV ONE (14:35)
[2021-05-12] MEDS ORDERED: MORPHINE 2 MG/ML 1ML VIAL (J2270) IV ONE (14:35)
[2021-05-12] MEDS ORDERED: ISOVUE-370 76% 100ML VIAL As Ordered ONE (14:39)
--- NOTE | 2021-05-12 15:34 | REP ---
INDICATION: LLQ PAIN, hx of stones, now w/ diarrhea. ?divertic. COMPARISON: Comparison abdominal CT study is from February 14, 2020.. TECHNIQUE: Helical scanning was acquired and 4 mm axial images are re-formatted. Coronal and sagittal MPR images were generated and reviewed. The contrast enhancement dose is 100 mL of intravenous Isovue 370. FINDINGS: Digital preliminary rn surgical radiograph shows clips in right upper quadrant. Bowel gas pattern is normal. On axial CT images, the lung bases are clear except for a granulomatous calcification in the left upper lobe and another in the left lower lobe. There is diffuse fatty infiltration of the liver. No focal liver lesion is seen. There are granulomatous calcifications in the spleen. The heart is enlarged as before. No pleural effusion is seen. Normal adrenal glands are observed. No pancreatic abnormality is seen. There is moderate hydronephrosis affecting the left kidney with hydroureter on the left. The hydroureter can be traced to the left pelvis where there is a 6 mm obstructive distal ureteral calculus located approximately 3-4 cm from the ureterovesical junction. there is a subtle 1.5 cm area of fullness in the left posterolateral bladder wall. This is of uncertain etiology and could represent blood of or a bladder wall mass. There is Analisa ureteral and perinephric streaking and edema due to acute ureteral obstruction. There are 2 intrarenal nonobstructive calculi in the left kidney as well measuring 4 and 6 mm respectively. No hydronephrosis or intrarenal calculus is noted on the right. The right kidney is unremarkable. Normal caliber aorta is seen. There is left colonic diverticulosis without CT evidence of diverticulitis. No abdominal wall defect or bony destructive lesion is appreciated. IMPRESSION: Acute obstructive uropathy on the left due to a 6 mm obstructive distal ureteral calculus. There is also an intrarenal 6 mm calculus and a 4 mm intrarenal calculus in the left kidney. Moderate left-sided hydronephrosis and hydroureter. Question left posterolateral bladder mass. <Electronically signed by Jef Tijerina > 05/12/21 [id number]
[2021-05-12] MEDS ORDERED: MORPHINE 4 MG/ML 1ML VIAL/SYRINGE (J2270) IV ONE (15:55)
[2021-05-12 17:10] VITALS: BP 171/98
[2021-05-12] MEDS ORDERED: FLOM0.4C39 PO (17:35)
[2021-05-12] MEDS ORDERED: PERC5TAB12 PO ×2 (17:35→17:40)
--- NOTE | 2021-05-13 10:46 | ED PDOC ---
Post-Departure Follow-Up juan a parson and dr castro faxed formal report of ct abd/p for fu Marcela Jett MD May 13, 2021 10:46
== END 2021-05-12 17:57 | disposition home or self-care (01) ==
LOC: M ED 10:45
DX: N13.2 Hydronephrosis with renal and ureteral calculous obstruction (principal); G47.33 Obstructive sleep apnea (adult) (pediatric); K21.9 Gastro-esophageal reflux disease without esophagitis; I10 Essential (primary) hypertension; Z88.8 Allergy status to other drugs, medicaments and biological substances
CPT/HCPCS: 36415; 74177; 80048; 80076; 81001; 83690; 85025; 96361; 96374; 96376; 99284; J2270; Q9967

== ENCOUNTER → 2021-06-11 | Outpatient (REF) | payer OTHER ==
[~2021-06-11] MED LIST changes: +AMLO2.5T3 PO; +DOXE25CA; +FLOM0.4C39 PO; +LOPE1CAP5 PO; +PERC5TAB12 PO; +TEST1.622 TOP
[2021-06-11 13:34] LABS: THYROID STIMULATING HORMONE 1.43 uIU/ML (0.358-3.740)
== END ==
LOC: M LABDRWAD 12:17
PROVIDERS: ATTEND Psychiatry & Neurology Neurology
DX: R25.1 Tremor, unspecified (principal)

== ENCOUNTER → 2021-08-25 | Outpatient (REF) | payer OTHER ==
[~2021-08-25] MED LIST changes: -TEST1.622 TOP; +TEST75GE TOP
[2021-08-25 14:01] LABS: HEMATOCRIT 46.4 % (42.0-52.0); HEMOGLOBIN 15.8 g/dl (13.5-17.5); MEAN CORPUSCULAR HEMOGLOBIN 31.4 pg (27.0-33.0); MEAN CORPUSCULAR HGB CONC 34.1 g/dl (32.0-36.5); MEAN CORPUSCULAR VOLUME 92.2 fl (80.0-96.0); PLATELET COUNT, AUTOMATED 213 10^3/uL (150-450); RED BLOOD COUNT 5.03 10^6/uL (4.30-6.10); WHITE BLOOD COUNT 7.6 10^3/uL (4.0-10.0)
[2021-08-25 14:34] LABS: PROSTATIC SPECIFIC AG MONITOR 1.42 NG/ML (< 4.00)
== END ==
LOC: M LABDRWAD 12:31
PROVIDERS: ATTEND Urology
DX: E29.1 Testicular hypofunction (principal)

== ENCOUNTER → 2021-10-29 | Outpatient (REF) | payer OTHER ==
[2021-10-29 13:16] LABS: BASO # 0.1 10^3/uL (0.0-0.2); BASO % 0.9 % (0.0-1.0); EOS # 0.4 10^3/uL (0.0-0.5); EOS % 5.8 % (0.0-3.0); HEMATOCRIT 46.2 % (42.0-52.0); HEMOGLOBIN 15.9 g/dl (13.5-17.5); LYMPH # 2.1 10^3/uL (1.5-5.0); LYMPH % 30.3 % (24.0-44.0); MEAN CORPUSCULAR HEMOGLOBIN 31.2 pg (27.0-33.0); MEAN CORPUSCULAR HGB CONC 34.4 g/dl (32.0-36.5); MEAN CORPUSCULAR VOLUME 90.8 fl (80.0-96.0); MONO # 0.7 10^3/uL (0.0-0.8); MONO % 9.9 % (2.0-8.0); NEUTROPHILS # 3.6 10^3/uL (1.5-8.5); NEUTROPHILS % 52.8 % (36.0-66.0); PLATELET COUNT, AUTOMATED 177 10^3/uL (150-450); RED BLOOD COUNT 5.09 10^6/uL (4.30-6.10); WHITE BLOOD COUNT 6.9 10^3/uL (4.0-10.0)
[2021-10-29 13:30] LABS: INR 1.02; PARTIAL THROMBOPLASTIN TIME 30.3 SECONDS (25.9-37.0); PROTHROMBIN TIME 13.8 SECONDS (12.7-14.5)
[2021-10-29 13:49] LABS: ALBUMIN 3.7 GM/DL (3.2-5.2); ALT/SGPT 44 U/L (12-78); BILIRUBIN,TOTAL 1.3 MG/DL (0.2-1.0); BLOOD UREA NITROGEN 11 MG/DL (7-18); CALCIUM LEVEL 9.4 MG/DL (8.8-10.2); CARBON DIOXIDE LEVEL 30 MEQ/L (21-32); CHLORIDE LEVEL 107 MEQ/L (98-107); CREATININE FOR GFR 0.85 MG/DL (0.70-1.30); GLOMERULAR FILTRATION RATE > 60.0 (>49); GLUCOSE, FASTING 93 MG/DL (70-100); POTASSIUM SERUM 4.1 MEQ/L (3.5-5.1); SODIUM LEVEL 141 MEQ/L (136-145); TOTAL PROTEIN 6.7 GM/DL (6.4-8.2)
== END ==
LOC: M LABDRWAD 12:44
PROVIDERS: ATTEND Internal Medicine Pulmonary Disease
DX: C67.8 Malignant neoplasm of overlapping sites of bladder (principal); Z01.812 Encounter for preprocedural laboratory examination

== ENCOUNTER → 2021-12-03 | Outpatient (CLI) | payer OTHER ==
[2021-12-03 12:55] LABS: HEMOGLOBIN A1c 5.6 %
== END ==
LOC: M ADAMS 09:44
PROVIDERS: ATTEND Psychiatry & Neurology Neurology
DX: R20.2 Paresthesia of skin (principal)

== ENCOUNTER → 2022-04-22 | Outpatient (CLI) | payer OTHER | LOC: M ADAMS 08:52 | PROVIDERS: ATTEND Urology | DX: E29.1 Testicular hypofunction (principal) ==

== ENCOUNTER → 2022-05-10 | Outpatient (REF) | payer OTHER ==
[2022-05-10 11:09] LABS: BACTERIA, URINE NONE SEEN; RBC, URINE 20-30 /hpf (0-3); SQUAMOUS EPITHELIAL CELL URINE SMALL AMOUNT /hpf (SMALL AMT)
[2022-05-10 11:10] LABS: MUCUS, URINE SMALL AMOUNT (NEGATIVE)
== END ==
LOC: M LAB REF 09:52
PROVIDERS: ATTEND Physician Assistant Medical
DX: R31.9 Hematuria, unspecified (principal)

== ENCOUNTER → 2022-05-10 | Outpatient (CLI) | payer OTHER | LOC: M RAD 09:49 | PROVIDERS: ATTEND Physician Assistant Medical | DX: N20.0 Calculus of kidney (principal); N28.1 Cyst of kidney, acquired; R93.41 Abnormal radiologic findings on diagnostic imaging of renal pelvis, ureter, or bladder ==

== ENCOUNTER → 2022-10-05 | Outpatient (CLI) | payer OTHER | LOC: M RAD 15:44 | PROVIDERS: ATTEND Physician Assistant | DX: M79.662 Pain in left lower leg (principal) ==

== ENCOUNTER → 2023-02-08 | Outpatient (CLI) | payer OTHER ==
[~2023-02-08] MED LIST changes: +NYST-38 PO; -NYST50SS PO
[2023-02-09 23:07] LABS: PSA TOTAL 1.8 ng/mL (0.0-4.0)
== END ==
LOC: M LABDRWAD 08:12
PROVIDERS: ATTEND Urology
DX: E29.1 Testicular hypofunction (principal)

== ENCOUNTER → 2023-05-02 | Outpatient (REF) | payer OTHER ==
[2023-05-02 13:19] LABS: HEMATOCRIT 46.7 % (42.0-52.0); HEMOGLOBIN 15.6 g/dl (13.5-17.5); MEAN CORPUSCULAR HEMOGLOBIN 29.9 pg (27.0-33.0); MEAN CORPUSCULAR HGB CONC 33.4 g/dl (32.0-36.5); MEAN CORPUSCULAR VOLUME 89.6 fl (80.0-96.0); PLATELET COUNT, AUTOMATED 180 10^3/uL (150-450); RED BLOOD COUNT 5.21 10^6/uL (4.30-6.10); WHITE BLOOD COUNT 5.8 10^3/uL (4.0-10.0)
[2023-05-02 13:23] LABS: ALBUMIN 3.5 G/DL (3.2-5.2); ALKALINE PHOSPHATASE 88 U/L (46-116); ALT/SGPT 44 U/L (7.0-40); AST/SGOT 29 U/L (<34); BILIRUBIN,TOTAL 1.6 MG/DL (0.3-1.2); BLOOD UREA NITROGEN 15 MG/DL (9-23); CALCIUM LEVEL 8.8 MG/DL (8.3-10.6); CARBON DIOXIDE LEVEL 32 MMOL/L (20-31); CHLORIDE LEVEL 104 MMOL/L (98-107); CHOLESTEROL LEVEL 180 MG/DL (<200); CHOLESTEROL RISK RATIO 2.51 (<5); CREATININE FOR GFR 0.86 MG/DL (0.70-1.30); GLOMERULAR FILTRATION RATE > 60.0 (>49); GLUCOSE, FASTING 97 MG/DL (74-106); HDL CHOLESTEROL 71.7 MG/DL (>40); LDL CHOLESTEROL 90.9 MG/DL (<100); NON-HDL-C 108.3 MG/DL; SODIUM LEVEL 141 MMOL/L (136-145); TOTAL PROTEIN 6.2 G/DL (5.7-8.2); TRIGLYCERIDES LEVEL 87 MG/DL (<150)
== END ==
LOC: M LABDRWAD 12:40
PROVIDERS: ATTEND Physician Assistant
DX: E78.5 Hyperlipidemia, unspecified (principal); I10 Essential (primary) hypertension

== ENCOUNTER 2023-05-19 16:49 | Emergency (ER) | payer OTHER ==
[~2023-05-19] VITALS: Ht 177.8 cm; Wt 127.7 kg
[2023-05-19] MEDS ORDERED: BOOSTRIX VACCINE (TETANUS/DIPHTH/ACEL. PERTUSSIS) 0.5ML SYR IM ONE (19:05)
[2023-05-19] MEDS ORDERED: RABIES VACCINE HUMAN 2.5 INTERNATIONAL UNITS/ML VIAL IM ONE (19:05)
[2023-05-19] MEDS ORDERED: RABIES IMMUNE GLOBULIN 1500 INTERNATIONAL UNIT/5ML VIAL IM.IMMUN ONE (19:05)
[2023-05-19 20:40] VITALS: BP 162/88; TEMP 97.1; O2SAT 97
== END 2023-05-19 20:55 | disposition home or self-care (01) ==
LOC: M ED 16:49
DX: S91.331A Puncture wound without foreign body, right foot, initial encounter (principal); S61.431A Puncture wound without foreign body of right hand, initial encounter; W55.81XA Bitten by other mammals, initial encounter; I10 Essential (primary) hypertension; K21.9 Gastro-esophageal reflux disease without esophagitis; Z88.8 Allergy status to other drugs, medicaments and biological substances; Y92.009 Unspecified place in unspecified non-institutional (private) residence as the place of occurrence of the external cause; Z79.811 Long term (current) use of aromatase inhibitors; Z79.899 Other long term (current) drug therapy; Z23 Encounter for immunization

== ENCOUNTER → 2023-08-15 | Outpatient (REF) | payer OTHER ==
[~2023-08-15] MED LIST changes: +CELE0.09 PO; -CELE1CAP9 PO; +LORA-1041 PO; -LORA-674 PO
[2023-08-16 01:04] LABS: PROSTATIC SPECIFIC AG MONITOR 0.97 NG/ML (< 4.00)
== END ==
LOC: M LABDRWAD 12:30
PROVIDERS: ATTEND Urology
DX: E29.1 Testicular hypofunction (principal)

== ENCOUNTER → 2024-01-16 | Outpatient (REF) | payer OTHER ==
[2024-01-16 14:40] LABS: PROSTATIC SPECIFIC AG MONITOR 1.01 NG/ML (< 4.00)
[2024-01-16 14:43] LABS: BLOOD UREA NITROGEN 20 MG/DL (9-23); CALCIUM LEVEL 9.3 MG/DL (8.3-10.6); CARBON DIOXIDE LEVEL 32 MMOL/L (20-31); CHLORIDE LEVEL 106 MMOL/L (98-107); CREATININE FOR GFR 0.94 MG/DL (0.70-1.30); GLOMERULAR FILTRATION RATE > 60.0 (>49); GLUCOSE, FASTING 99 MG/DL (74-106); POTASSIUM SERUM 3.6 MMOL/L (3.5-5.1); SODIUM LEVEL 142 MMOL/L (136-145)
== END ==
LOC: M LABDRWAD 13:00
PROVIDERS: ATTEND Internal Medicine Pulmonary Disease
DX: C67.8 Malignant neoplasm of overlapping sites of bladder (principal)

== ENCOUNTER → 2024-02-16 | Outpatient (REF) | payer OTHER ==
[2024-02-16 13:08] LABS: HEMATOCRIT 45.9 % (42.0-52.0); HEMOGLOBIN 15.8 g/dl (13.5-17.5); MEAN CORPUSCULAR HEMOGLOBIN 31.7 pg (27.0-33.0); MEAN CORPUSCULAR HGB CONC 34.4 g/dl (32.0-36.5); MEAN CORPUSCULAR VOLUME 92.2 fl (80.0-96.0); PLATELET COUNT, AUTOMATED 171 10^3/uL (150-450); RED BLOOD COUNT 4.98 10^6/uL (4.30-6.10); WHITE BLOOD COUNT 6.9 10^3/uL (4.0-10.0)
[2024-02-16 13:32] LABS: ALBUMIN 3.8 G/DL (3.2-5.2); ALKALINE PHOSPHATASE 85 U/L (46-116); ALT/SGPT 39 U/L (7.0-40); AST/SGOT 30 U/L (<34); BILIRUBIN,TOTAL 1.8 MG/DL (0.3-1.2); BLOOD UREA NITROGEN 14 MG/DL (9-23); CALCIUM LEVEL 9.6 MG/DL (8.3-10.6); CARBON DIOXIDE LEVEL 30 MMOL/L (20-31); CHLORIDE LEVEL 103 MMOL/L (98-107); CHOLESTEROL LEVEL 186 MG/DL (<200); CHOLESTEROL RISK RATIO 2.87 (<5); GLOMERULAR FILTRATION RATE > 60.0 (>49); GLUCOSE, FASTING 90 MG/DL (74-106); HDL CHOLESTEROL 64.6 MG/DL (>40); NON-HDL-C 121.4 MG/DL; POTASSIUM SERUM 3.9 MMOL/L (3.5-5.1); SODIUM LEVEL 140 MMOL/L (136-145); TOTAL PROTEIN 6.2 G/DL (5.7-8.2); TRIGLYCERIDES LEVEL 102 MG/DL (<150)
== END ==
LOC: M LABDRWAD 12:30
PROVIDERS: ATTEND Physician Assistant
DX: I10 Essential (primary) hypertension (principal); E78.5 Hyperlipidemia, unspecified

== ENCOUNTER → 2024-05-16 | Outpatient (REF) | payer OTHER ==
[~2024-05-16] MED LIST changes: -OLME1TAB53 PO; +OLME1TAB54 PO
[2024-05-16 14:23] LABS: BLOOD UREA NITROGEN 14 MG/DL (9-23); CALCIUM LEVEL 9.7 MG/DL (8.3-10.6); CARBON DIOXIDE LEVEL 32 MMOL/L (20-31); CHLORIDE LEVEL 106 MMOL/L (98-107); CREATININE FOR GFR 0.95 MG/DL (0.70-1.30); GLOMERULAR FILTRATION RATE > 60.0 (>49); GLUCOSE, FASTING 102 MG/DL (74-106); MAGNESIUM LEVEL 1.8 MG/DL (1.8-2.4); POTASSIUM SERUM 3.6 MMOL/L (3.5-5.1); SODIUM LEVEL 141 MMOL/L (136-145)
[2024-05-16 14:24] LABS: IRON (FE) 60 UG/DL (65-175); PERCENT SATURATION 17.9 % (19.7-50.0); TOTAL IRON BINDING CAPACITY 336 UG/DL (250-425)
[2024-05-16 14:26] LABS: FERRITIN 86.2 NG/ML (10.5-307.3); VITAMIN B12 LEVEL 319 PG/ML (211-911)
== END ==
LOC: M LABDRWAD 13:27
PROVIDERS: ATTEND Physician Assistant
DX: E61.1 Iron deficiency (principal)

== ENCOUNTER → 2024-07-30 | Outpatient (REF) | payer OTHER | LOC: M LABDRWAD 13:25 | PROVIDERS: ATTEND Urology | DX: E29.1 Testicular hypofunction (principal) ==

== ENCOUNTER → 2024-08-22 | Outpatient (REF) | payer OTHER ==
[2024-08-22 13:41] LABS: HEMATOCRIT 44.1 % (42.0-52.0); MEAN CORPUSCULAR HEMOGLOBIN 32.4 pg (27.0-33.0); MEAN CORPUSCULAR VOLUME 95.2 fl (80.0-96.0); PLATELET COUNT, AUTOMATED 165 10^3/uL (150-450); RED BLOOD COUNT 4.63 10^6/uL (4.30-6.10); WHITE BLOOD COUNT 6.1 10^3/uL (4.0-10.0)
[2024-08-22 13:47] LABS: ALBUMIN 3.4 G/DL (3.2-5.2); ALKALINE PHOSPHATASE 83 U/L (40-129); ALT/SGPT 26 U/L (7.0-40); AST/SGOT 23 U/L (<34); BILIRUBIN,TOTAL 1.4 MG/DL (0.3-1.2); BLOOD UREA NITROGEN 12 MG/DL (9-23); CALCIUM LEVEL 9.8 MG/DL (8.3-10.6); CARBON DIOXIDE LEVEL 30 MMOL/L (20-31); CHLORIDE LEVEL 110 MMOL/L (98-107); CHOLESTEROL LEVEL 166 MG/DL (<200); CHOLESTEROL RISK RATIO 2.74 (<5); CREATININE FOR GFR 0.86 MG/DL (0.70-1.30); GLOMERULAR FILTRATION RATE > 60.0 (>49); GLUCOSE, FASTING 88 MG/DL (74-106); HDL CHOLESTEROL 60.4 MG/DL (>40); LDL CHOLESTEROL 84.8 MG/DL (<100); NON-HDL-C 105.6 MG/DL; SODIUM LEVEL 143 MMOL/L (136-145); THYROID STIMULATING HORMONE 0.768 uIU/ML (0.55-4.78); TOTAL PROTEIN 6.4 G/DL (5.7-8.2); TRIGLYCERIDES LEVEL 104 MG/DL (<150)
[2024-08-22 13:49] LABS: TOTAL 25(OH) VITAMIN D 32.6 NG/ML (20.0-100.0)
== END ==
LOC: M LABDRWAD 13:05 → M LAB REF 13:05
PROVIDERS: ATTEND Physician Assistant
DX: I10 Essential (primary) hypertension (principal); E78.5 Hyperlipidemia, unspecified; E55.9 Vitamin D deficiency, unspecified

== ENCOUNTER → 2024-10-01 | Outpatient (REF) | payer OTHER ==
[2024-10-01 13:56] LABS: PROSTATIC SPECIFIC AG MONITOR 1.39 NG/ML (< 4.00)
== END ==
LOC: M LABDRWAD 12:36 → M LAB REF 12:36
PROVIDERS: ATTEND Urology
DX: Z85.51 Personal history of malignant neoplasm of bladder (principal)

== ENCOUNTER → 2025-03-01 | Outpatient (REF) | payer OTHER ==
[~2025-03-01] MED LIST changes: -FLOM0.4C39 PO; -OLME1TAB54 PO; +OLME1TAB93 PO; +TAMS-18 PO
[2025-03-01 14:29] LABS: HEMATOCRIT 50.7 % (42.0-52.0); HEMOGLOBIN 16.1 g/dl (13.5-17.5); MEAN CORPUSCULAR HEMOGLOBIN 27.7 pg (27.0-33.0); MEAN CORPUSCULAR HGB CONC 31.8 g/dl (32.0-36.5); MEAN CORPUSCULAR VOLUME 87.1 fl (80.0-96.0); PLATELET COUNT, AUTOMATED 180 10^3/uL (150-450); RED BLOOD COUNT 5.82 10^6/uL (4.30-6.10)
[2025-03-01 14:36] LABS: THYROID STIMULATING HORMONE 1.596 uIU/ML (0.55-4.78)
[2025-03-01 14:49] LABS: ALBUMIN 3.7 G/DL (3.2-5.2); BILIRUBIN,TOTAL 2.3 MG/DL (0.3-1.2); CALCIUM LEVEL 9.2 MG/DL (8.3-10.6); CHOLESTEROL RISK RATIO 2.7 (<5); GLOMERULAR FILTRATION RATE 83.5 (>49); HDL CHOLESTEROL 58.1 MG/DL (>40); LDL CHOLESTEROL 85.9 MG/DL (<100); NON-HDL-C 98.9 MG/DL; POTASSIUM SERUM 4.2 MMOL/L (3.5-5.1); TOTAL PROTEIN 6.5 G/DL (5.7-8.2); URIC ACID 6.4 MG/DL (3.7-9.2)
== END ==
LOC: M LABDRWAD 13:23
PROVIDERS: ATTEND Physician Assistant
DX: I10 Essential (primary) hypertension (principal); E78.5 Hyperlipidemia, unspecified; M10.9 Gout, unspecified

== ENCOUNTER → 2025-05-15 | Outpatient (REF) | payer OTHER, MEDICARE ==
[2025-05-15 13:48] LABS: CREATININE FOR GFR 0.95 MG/DL (0.70-1.30); GLOMERULAR FILTRATION RATE 88.8 (>49)
== END ==
LOC: M LABWUC 12:49
PROVIDERS: ATTEND Otolaryngology
DX: H90.A21 Sensorineural hearing loss, unilateral, right ear, with restricted hearing on the contralateral side (principal)

== ENCOUNTER → 2025-06-21 | Outpatient (CLI) | payer OTHER, MEDICARE ==
[~2025-06-21] MED LIST changes: +PROHANCE 279.3MG/ML 15ML VIAL ONE; +PROHANCE 279.3MG/ML 5ML VIAL ONE
== END ==
LOC: M PLAIMG 08:44
PROVIDERS: ATTEND Otolaryngology
DX: H90.A21 Sensorineural hearing loss, unilateral, right ear, with restricted hearing on the contralateral side (principal); J34.2 Deviated nasal septum
CPT/HCPCS: 70553; A9576

== ENCOUNTER → 2025-06-27 | Outpatient (CLI) | payer OTHER, MEDICARE ==
[~2025-06-27] MED LIST changes: -PROHANCE 279.3MG/ML 15ML VIAL ONE; -PROHANCE 279.3MG/ML 5ML VIAL ONE
[2025-06-27 13:42] LABS: PLATELET COUNT, AUTOMATED 185 10^3/uL (150-450)
[2025-06-27 13:44] LABS: ALT/SGPT 33.0 U/L (7.0-40); AST/SGOT 36.0 U/L (<34); PROSTATIC SPECIFIC AG MONITOR 1.56 NG/ML (< 4.00)
[2025-06-27 13:50] LABS: TESTOSTERONE 655.0 NG/DL (241-827)
== END ==
LOC: M LABDRWAD 08:05
PROVIDERS: ATTEND Nurse Practitioner Adult Health
DX: E29.1 Testicular hypofunction (principal); Z79.899 Other long term (current) drug therapy

== ENCOUNTER → 2025-09-04 | Outpatient (REF) | payer OTHER, MEDICARE ==
[2025-09-04 13:52] LABS: PLATELET COUNT, AUTOMATED 157 10^3/uL (150-450)
[2025-09-04 13:55] LABS: ALT/SGPT 31.0 U/L (7.0-40); AST/SGOT 38.0 U/L (<34); CALCIUM LEVEL 9.7 MG/DL (8.3-10.6); CARBON DIOXIDE LEVEL 31.0 MMOL/L (20-31); CHLORIDE LEVEL 103.0 MMOL/L (98-107); CHOLESTEROL LEVEL 174.0 MG/DL (<200); CHOLESTEROL RISK RATIO 2.55 (<5); CREATININE FOR GFR 1.0 MG/DL (0.70-1.30); GLOMERULAR FILTRATION RATE 83.5 (>49); LDL CHOLESTEROL 91.8 MG/DL (<100); NON-HDL-C 105.8 MG/DL; POTASSIUM SERUM 4.2 MMOL/L (3.5-5.1); SODIUM LEVEL 142.0 MMOL/L (136-145); TRIGLYCERIDES LEVEL 70.0 MG/DL (<150)
== END ==
LOC: M LABDRWAD 13:08
PROVIDERS: ATTEND Physician Assistant
DX: I10 Essential (primary) hypertension (principal); E78.5 Hyperlipidemia, unspecified; E78.2 Mixed hyperlipidemia